=== PATIENT | female | born 1975 | race Caucasian/White ===

== ENCOUNTER 2017-01-01 19:38 | Emergency (ER) | payer MEDICAID ==
[2017-01-01 19:48] VITALS: RESP 18
[2017-01-01] MEDS ORDERED: Sodium Chloride 0.9% 1,000 ML IV ONE (21:48)
[2017-01-01 22:41] LABS: BASO # 0.1 K/uL (0.0-0.2); EOS # 0.1 K/uL (0.0-0.7); EOS % 1.5 % (0.0-4.0); HEMATOCRIT 48.5 % (34.0-47.0); LYMPH % 21.9 % (20.0-40.0); MEAN CELL VOLUME 95.7 fL (81.0-99.0); MEAN CORPUSCULAR HEMOGLOBIN 32.2 pg (27.0-31.0); MEAN CORPUSCULAR HGB CONC 33.6 g/dL (33.0-37.0); MEAN PLATELET VOLUME 8.5 fL (7.2-11.7); MONO # 0.7 K/uL (0.0-0.8); MONO % 7.8 % (0.0-10.0); RED CELL DISTRIBUTION WIDTH 15.2 % (11.5-14.5)
[2017-01-01] MEDS ORDERED: Sodium Chloride 0.9% 1,000 ML ONE (22:41)
[2017-01-01] MEDS ORDERED: Sodium Chloride 0.9% 50 ML IV ONE (22:42)
[2017-01-01 22:48] LABS: CHLORIDE 105 mmol/L (98-107); URINE BACTERIA RARE (<OCC); URINE BILIRUBIN NEGATIVE (NEGATIVE); URINE BLOOD NEGATIVE (NEGATIVE); URINE COLOR Yellow (YELLOW); URINE GLUCOSE (UA) NORMAL (Normal); URINE KETONE NEGATIVE (NEGATIVE); URINE LEUKOCYTE ESTERASE NEG Leu/uL (Negative); URINE PROTEIN NEGATIVE (NEGATIVE); URINE UROBILINOGEN NORMAL mg/dL (0.2-1.0); WBC URINE 1 /hpf (0-5)
[2017-01-01 22:49] LABS: POTASSIUM 3.4 mmol/L (3.6-5.2); SODIUM 138 mmol/L (132-148)
[2017-01-01 22:51] LABS: BILIRUBIN,TOTAL 0.6 mg/dL (0.2-1.3); GFR AFRICAN-AMERICAN > 60
[2017-01-01 22:52] LABS: ALB/GLOB RATIO 1.1 (1.0-2.1); ALKALINE PHOSPHATASE 119 U/L (38-126); ALT/SGPT 23 U/L (9-52); AST/SGOT 17 U/L (14-36); BLOOD UREA NITROGEN 3 mg/dL (7-17); CALCIUM 8.8 mg/dl (8.6-10.4); CARBON DIOXIDE 21 mmol/L (22-30); GLUCOSE,RANDOM 101 mg/dL (65-105); TOTAL PROTEIN 7.2 g/dL (6.3-8.3)
[2017-01-01 23:11] LABS: T4 2.94 ug/dL (5.5-11.0)
[2017-01-01] MEDS ORDERED: Levothyroxine 200 MCG TAB PO STA (23:38)
--- NOTE | 2017-01-01 23:41 | C.PDOC ---
Time Seen by Provider: 01/01/17 21:27 Chief Complaint (Nursing): Abdominal Pain History Per: Patient Onset/Duration Of Symptoms: Days (few) Current Symptoms Are (Timing): Still Present Location Of Pain/Discomfort: Epigastric Radiation Of Pain To:: None Quality Of Discomfort: Unable To Describe, "Pain" Associated Symptoms: Constipation Alleviating Factors: None Additional History Per: Prior Records Past Medical History Reviewed: Historical Data, Nursing Documentation, Vital Signs Vital Signs: Last Vital Signs Temp 98.4 F 01/01/17 19:44 Pulse 101 H 01/01/17 19:44 Resp 18 01/01/17 19:44 BP 112/76 01/01/17 19:44 Pulse Ox 100 01/01/17 23:42 - Medical History PMH: Anxiety, Arthritis, Asthma, Back Problems, COPD, Depression, Diabetes, Fibromyalgia, Graves' Disease, HTN, Hypothyroidism, Post Traumatic Stress Disorder, Schizophrenia Surgical History: Tonsillectomy Family History: States: Unknown Family Hx - Social History Hx Tobacco Use: Yes Hx Alcohol Use: Yes Hx Substance Use: No - Immunization History Hx Tetanus Toxoid Vaccination: Yes Hx Influenza Vaccination: Yes Hx Pneumococcal Vaccination: Yes Review Of Systems Except As Marked, All Systems Reviewed And Found Negative. Constitutional: Negative for: Fever, Weakness Cardiovascular: Negative for: Chest Pain Respiratory: Negative for: Shortness of Breath Gastrointestinal: Positive for: Abdominal Pain, Constipation. Negative for: Vomiting, Diarrhea, Melena, Hematochezia, Hematemesis Genitourinary: Negative for: Dysuria Musculoskeletal: Negative for: Neck Pain, Back Pain Skin: Negative for: Rash Neurological: Negative for: Weakness, Numbness, Seizures, Altered Mental Status Physical Exam - Physical Exam Appears: Non-toxic, No Acute Distress Skin: Normal Color, Warm, Dry, No Rash Head: Atraumatic, Normacephalic Eye(s): bilateral: PERRL, EOMI Neck: Normal ROM, Supple Cardiovascular: Rhythm Regular Respiratory: Normal Breath Sounds, No Accessory Muscle Use Gastrointestinal/Abdominal: Soft, Tenderness (mild epigastric), No Guarding, No Rebound Back: No CVA Tenderness Extremity: Normal ROM Neurological/Psych: Oriented x3, Normal Motor, Normal Sensation ED Course And Treatment - Laboratory Results Result Diagrams: 01/01/17 22:38 01/01/17 22:38 Lab Interpretation: Abnormal Interpretation Of Abnormal: Hypothyroidism Urine POC: Negative O2 Sat by Pulse Oximetry: 100 Pulse Ox Interpretation: Normal Progress Note: Pt states that she ran out of her Levothyroxine 200mcg daily about a month ago. Progress - Interventions Interventions:: Observation, Intravenous fluid - Medications Administered Intravenous: Antiemetic, H-2 don - Data Reviewed Data Reviewed: Lab, Old records - Patient Status Patient status: Mostly improved - Continuity of Care Discussed patient case with:: Patient, ED Nurse - Patient Plan Patient Plan: Discharge, F/U with PCP Disposition Counseled Patient/Family Regarding: Studies Performed, Diagnosis, Need For Followup, Rx Given, Smoking Cessation - Disposition Referrals: Tylor Woo MD [Non-Staff] - Disposition: HOME/ ROUTINE Disposition Time: 23:44 Condition: IMPROVED Additional Instructions: Follow up with your doctor for further evaluation and treatment. Return to the ER if you develop fever, vomiting, worsening of symptoms or if you have any other concerns. Prescriptions: Docusate [Colace] 100 mg PO BID PRN #60 cap PRN Reason: Constipation Levothyroxine [Synthroid] 200 mcg PO DAILY #30 tab Instructions: Hypothyroidism (ED), Constipation (ED) - Clinical Impression Clinical Impression: Abdominal pain, Hypothyroidism, Constipation
[2017-01-01] MEDS ORDERED: Potassium Chloride 20 mEq ER Tab PO STA (23:42)
[2017-01-01 23:58] VITALS: BP 134/87; PULSE 88; TEMP 97.9; O2SAT 98
[2017-01-02] MEDS ORDERED: Potassium Chloride 20 mEq ER Tab PO ONE (00:26)
== END 2017-01-02 00:32 | disposition home or self-care (01) ==
LOC: C.ER 19:38
DX: K59.00 Constipation, unspecified (principal); R10.13 Epigastric pain; E03.9 Hypothyroidism, unspecified; E87.6 Hypokalemia
CPT/HCPCS: 80053; 81001; 83690; 84436; 84443; 84480; 84703; 85025; 96361; 96374; 96375; 99285; J2765; J7040

== ENCOUNTER 2017-01-03 19:51 | Inpatient (IN) | payer MEDICAID ==
[2017-01-03 20:40] LABS: BASO # 0.1 K/uL (0.0-0.2); BASO % 0.8 % (0.0-2.0); EOS # 0.2 K/uL (0.0-0.7); EOS % 1.5 % (0.0-4.0); HEMATOCRIT 48.7 % (34.0-47.0); MEAN CELL VOLUME 96.5 fL (81.0-99.0); MEAN CORPUSCULAR HEMOGLOBIN 32.4 pg (27.0-31.0); MEAN CORPUSCULAR HGB CONC 33.6 g/dL (33.0-37.0); MEAN PLATELET VOLUME 8.9 fL (7.2-11.7); MONO # 0.8 K/uL (0.0-0.8); MONO % 7.7 % (0.0-10.0); RED CELL DISTRIBUTION WIDTH 15.6 % (11.5-14.5); WHITE BLOOD COUNT 10.3 K/uL (4.8-10.8)
--- NOTE | 2017-01-03 20:49 | C.PDOC ---
History Of Present Illness A 41 year old female presents to the ED with suicidal ideation. At first, patient reported that she took multiple tablets of Trazadone, but later recanted it. Patient is unsure which medication and how much of it, she consumed. Patient states that she wants to kill herself. Patient denies any chest pain, shortness of breath, fever, nausea, vomiting, diarrhea, or any other complaints. Time Seen by Provider: 01/03/17 20:19 Chief Complaint (Nursing): Medical Clearance History Per: Patient History/Exam Limitations: no limitations Onset/Duration Of Symptoms: Hrs Current Symptoms Are (Timing): Still Present Severity: Mild Recent travel outside of the [place]: No Past Medical History Reviewed: Historical Data, Nursing Documentation, Vital Signs Vital Signs: Last Vital Signs Temp 98.4 F 01/04/17 00:01 Pulse 88 01/04/17 00:01 Resp 20 01/04/17 00:01 BP 126/80 01/04/17 00:01 Pulse Ox 97 01/04/17 00:01 - Medical History PMH: Anxiety, Arthritis, Asthma, Back Problems, COPD, Depression, Diabetes, Fibromyalgia, Graves' Disease, HTN, Hyperthyroidism, Hypothyroidism, Post Traumatic Stress Disorder, Schizophrenia Denies: HIV, Seizures, Sexually Transmitted Disease Surgical History: Tonsillectomy Family History: States: Unknown Family Hx - Social History Hx Tobacco Use: Yes Hx Alcohol Use: Yes Hx Substance Use: No - Immunization History Hx Tetanus Toxoid Vaccination: Yes Hx Influenza Vaccination: Yes Hx Pneumococcal Vaccination: Yes Review Of Systems Except As Marked, All Systems Reviewed And Found Negative. Constitutional: Negative for: Fever Cardiovascular: Negative for: Chest Pain Respiratory: Negative for: Shortness of Breath Gastrointestinal: Negative for: Nausea, Vomiting, Diarrhea Psych: Positive for: Suicidal ideation Physical Exam - Physical Exam Appears: Well, Non-toxic, No Acute Distress, Other (Pleasant. Conversing. Obese. ) Skin: Normal Color, Warm, Dry Head: Atraumatic, Normacephalic Eye(s): bilateral: Normal Inspection Neck: Normal ROM, Supple Cardiovascular: Rhythm Regular Respiratory: Normal Breath Sounds, No Rales, No Rhonchi, No Wheezing Gastrointestinal/Abdominal: Soft, No Tenderness, No Guarding, No Rebound Extremity: Normal ROM, No Tenderness Neurological/Psych: Oriented x3, Normal Speech, Normal Cognition ED Course And Treatment - Laboratory Results Result Diagrams: 01/03/17 20:31 01/03/17 20:30 ECG: Interpreted By Me ECG Rhythm: Sinus Tachycardia ECG Interpretation: Abnormal Rate From EC (otherwise nl) O2 Sat by Pulse Oximetry: 100 (repeat EKG after approx 4 hours, NSR 96, no prolonged QT. wnl) Medical Decision Making Medical Decision Making: Plan: -- Labs -- One on one at bedside 0030: medically cleared for psych eval/inpt repeat EKG after 4 hours remains wnl. (per Poison Contol recommendations) Disposition - Disposition Disposition Time: 01:00 Condition: GOOD - Clinical Impression Clinical Impression: Medical assessment, Schizophrenia - Scribe Statement The provider has reviewed the documentation as recorded by the Scribe Alfonzo Contreras All medical record entries made by the Scribe were at my direction and personally dictated by me. I have reviewed the chart and agree that the record accurately reflects my personal performance of the history, physical exam, medical decision making, and the department course for this patient. I have also personally directed, reviewed, and agree with the discharge instructions and disposition. Physician Patient Turnover Patient Signed Over To: Kishor Harmon Handoff Comments: dispo per Crisis Recommendations.
[2017-01-03 20:52] LABS: CHLORIDE 101 mmol/L (98-107)
[2017-01-03 20:53] LABS: POTASSIUM 3.1 mmol/L (3.6-5.2); SODIUM 137 mmol/L (132-148)
[2017-01-03 20:55] LABS: ALB/GLOB RATIO 1.2 (1.0-2.1); ALKALINE PHOSPHATASE 120 U/L (38-126); ALT/SGPT 18 U/L (9-52); AST/SGOT 17 U/L (14-36); BILIRUBIN,TOTAL 0.3 mg/dL (0.2-1.3); BLOOD UREA NITROGEN 4 mg/dL (7-17); CALCIUM 8.4 mg/dl (8.6-10.4); CARBON DIOXIDE 20 mmol/L (22-30); GFR AFRICAN-AMERICAN > 60; GLUCOSE,RANDOM 109 mg/dL (65-105); TOTAL PROTEIN 7.3 g/dL (6.3-8.3)
[2017-01-03 20:56] LABS: ALCOHOL SERUM < 10 mg/dl (0-10)
[2017-01-03 21:31] LABS: URINE BACTERIA RARE (<OCC); URINE BILIRUBIN NEGATIVE (NEGATIVE); URINE BLOOD NEGATIVE (NEGATIVE); URINE COLOR Yellow (YELLOW); URINE GLUCOSE (UA) NORMAL (Normal); URINE KETONE NEGATIVE (NEGATIVE); URINE LEUKOCYTE ESTERASE NEG Leu/uL (Negative); URINE PROTEIN NEGATIVE (NEGATIVE); URINE UROBILINOGEN NORMAL mg/dL (0.2-1.0); WBC URINE < 1 /hpf (0-5)
[2017-01-04] MEDS ORDERED: Naphazoline-Pheniramine Ophth Soln OU PRN (10:00)
[2017-01-04] MEDS: Levothyroxine 200 MCG TAB PO SCH (10:58)
[2017-01-04] MEDS: Pantoprazole 40 mg EC Tab PO SCH (10:58)
[2017-01-04 11:03] LABS: IRON 63 ug/dL (37-170)
[2017-01-04 12:11] LABS: FOLATE 3.9 ng/mL
--- NOTE | 2017-01-04 12:51 | CP.PCM.CON ---
History of Present Illness - History of Present Illness History of Present Illness: Chest pain and prolong Q-T interval. No new symptoms since admission. Past Patient History - Infectious Disease Hx of Infectious Diseases: None - Past Medical History & Family History Past Medical History?: Yes - Past Social History Smoking Status: Heavy Smoker > 10 Cigarettes Daily - CARDIAC Hx Cardiac Disorders: No Hx Hypertension: Yes - PULMONARY Hx Asthma: Yes Hx Tuberculosis: No - NEUROLOGICAL HX Cerebrovascular Accident: No Hx Seizures: No Hx Vertigo: Yes - HEENT Other/Comment: Hyperthyroidism - RENAL Hx Chronic Kidney Disease: No - ENDOCRINE/METABOLIC Hx Hyperthyroidism: Yes Hx Hypothyroidism: Yes - HEMATOLOGICAL/ONCOLOGICAL Hx Blood Disorders: No Hx Cancer: No Hx Human Immunodeficiency Virus (HIV): No - INTEGUMENTARY Hx Dermatological Problems: No - MUSCULOSKELETAL/RHEUMATOLOGICAL Hx Arthritis: Yes - GASTROINTESTINAL Hx Gastrointestinal Disorders: Yes Hx Gastroesophageal Reflux: Yes - GENITOURINARY/GYNECOLOGICAL Hx Genitourinary Disorders: No Hx Sexually Transmitted Disorders: No - PSYCHIATRIC Hx Anxiety: Yes Hx Depression: Yes Hx Post Traumatic Stress Disorder: Yes Hx Schizophrenia: Yes Hx Substance Use: No - SURGICAL HISTORY Hx Tonsillectomy: Yes Other/Comment: Right Eye surgery, Right Neck Surgery - ANESTHESIA Hx Anesthesia: Yes Hx Anesthesia Reactions: No Hx Malignant Hyperthermia: No Has any member of the family had a problem w/ anesthesia?: No Meds Allergies/Adverse Reactions: Allergies Allergy/AdvReac Type Severity Reaction Status Date / Time cefazolin sodium [From Anc] Allergy RASH Verified 01/03/17 20:12 Penicillins Allergy RASH Verified 01/03/17 20:12 - Medications Medications: Current Medications Docusate Sodium (Colace) 100 mg PO BID PRN PRN Reason: Constipation Last Admin: 01/04/17 10:58 Dose: 100 mg Gabapentin (Neurontin) 800 mg PO TID [facility] Last Admin: 01/04/17 10:58 Dose: 800 mg Home Med (Ketotifen Fumarate [Allergy Eye Drops]) 1 drop OU BID [facility] Levothyroxine Sodium (Synthroid) 200 mcg PO 0630 [facility] Last Admin: 01/04/17 10:58 Dose: 200 mcg Pantoprazole Sodium (Protonix Ec Tab) 40 mg PO DAILY [facility] Last Admin: 01/04/17 10:58 Dose: 40 mg Trazodone HCl (Desyrel) 150 mg PO HS [facility] Physical Exam - Head Exam Head Exam: NORMOCEPHALIC - Neck Exam Neck exam: Positive for: Normal Inspection - Respiratory Exam Respiratory Exam: NORMAL BREATHING PATTERN - Cardiovascular Exam Cardiovascular Exam: REGULAR RHYTHM - Neurological Exam Neurological exam: Oriented x3 Results - Vital Signs Recent Vital Signs: Last Vital Signs Temp 97.8 F 01/04/17 12:12 Pulse 78 01/04/17 12:12 Resp 20 01/04/17 12:12 BP 92/51 L 01/04/17 12:12 Pulse Ox 98 01/04/17 12:12 - Labs Result Diagrams: 01/03/17 20:31 01/03/17 20:30 Labs: Laboratory Results - last 24 hr 01/04/17 10:24 Hemoglobin A1c 5.5 Iron 63 TIBC 279 % Saturation 23 Total Creatine Kinase 105 CK-MB (Mass) 0.71 Troponin I, Quant < 0.0120 Triglycerides 74 Cholesterol 159 LDL Cholesterol Direct 85 HDL Cholesterol 54 Vitamin B12 391 Folate 3.9 Assessment & Plan (1) Long QT interval Assessment and Plan: Prolong Q-T interval may be secondary to her Medication and electrolyte abnormalities. Doses of her medicine needs to be adjusted of OK with psychiatry. Electrolyte abnormalities also needs to be corrected. Orders given to supplement K and Mg. Status: Acute (2) Chest pain Assessment and Plan: Atypical and work up is negative so far, continue monitor. Status: Acute
[2017-01-04] MEDS ORDERED: Potassium Chloride 20 mEq 100 ML IVPB ONE (12:54)
[2017-01-04] MEDS ORDERED: Potassium Chloride 20 mEq ER Tab PO ONE ×2 (13:06→17:06)
--- NOTE | 2017-01-04 13:24 | PCM.PSYCH ---
Initial Psychiatric Evaluation - Initial Psychiatric Evaluation Type of Admission: Voluntary Legal Status: Capacity Chief Complaint (in patient's own words): "I'm tired" History of Present Illness and Precipitating Events: The patient is seen, chart reviewed and case discussed. Consultation was requested because of the patient's overdose. This is a 15-year-old manic female with 3 children aged 17, 19 and 21. She is on several ability and on wheelchair. The patient admits to taking more trazodone than she was supposed to yesterday and she claims that it was "not a real suicide attempt" as she had done a real one long ago, in the past. She says that she was feeling depressed and very anxious lately and she mixed her meds but did not care much, but at same time she states that she knew she would not and she asked for help. She did not write any suicide note and she is very happy to be alive and she states that "I have 3 beautiful children." She denies any suicidal ideation or plan at this point and she is future oriented, she wants to continue with outpatient psych therapy and adjust her medications. Insurance Defense Attorney spoke to her with her permission and he, too, reported that patient was not suicidal, but anxious lately. Patient also admits to hearing voices but no comments. Voices yell at her at times. She reports some depressive symptoms, including low self-esteem, but denies feeling paranoid or manic. She was on trazodone and Risperdal which play writer confirmed with her pharmacy, [facility] [address], as well as Trileptal, Xanax and she use gabapentin last year. She was also on Wellbutrin XL 300 mg She denies drug and alcohol abuse but smokes 1 ppd cig. Past psych history: Several admissions. She use to go to [facility] but she stopped because of her physical disability and missing appointments. She is getting her medications from her neurologist on [facility]. One overdose many years ago and her last psych admission was in 2013. Family psych history: Father had schizophrenia Medical history: Disc hernia, wheelchair bound, Ami's thyroiditis. Current Medications: Active Medications Generic Name Dose Route Start Last Admin Trade Name Freq PRN Reason Stop Dose Admin Docusate Sodium 100 mg 01/04/17 08:54 01/04/17 10:58 Colace PO 100 mg BID PRN Administration Constipation Gabapentin 800 mg 01/04/17 10:00 01/04/17 10:58 Neurontin PO 800 mg TID LIZZIE Administration Potassium Chloride 100 mls @ 50 mls/hr 01/04/17 12:54 Potassium Chloride 20 Meq/100 Ml IVPB 01/04/17 14:53 ONCE ONE Levothyroxine Sodium 200 mcg 01/04/17 10:00 01/04/17 10:58 Synthroid PO 200 mcg 0630 LIZZIE Administration Naphazoline HCl/Pheniramine Maleate 0 ml 01/04/17 10:00 Naphcon-A Opht OU BID PRN EYE ITCHING/REDNESS Pantoprazole Sodium 40 mg 01/04/17 10:00 01/04/17 10:58 Protonix Ec Tab PO 40 mg DAILY LIZZIE Administration Potassium Chloride 40 meq 01/04/17 17:06 K-Dur 20 Meq Er Tab PO 01/04/17 17:07 ONCE ONE Trazodone HCl 150 mg 01/04/17 22:00 Desyrel PO HS [facility] Past Psychiatric History - Past Psychiatric History Previous Treatment History: Inpatient Pertinent Medical Hx (Current Medical&Sleep Prob, Allergies): Allergies Allergy/AdvReac Type Severity Reaction Status Date / Time cefazolin sodium [From [facility]] Allergy RASH Verified 01/03/17 20:12 Penicillins Allergy RASH Verified 01/03/17 20:12 Benzonatate [Tessalon Perle] 100 mg PO BID 01/01/17 Cyclobenzaprine 5 mg PO BID 01/01/17 Docusate [Colace] 100 mg PO BID PRN #60 cap 01/01/17 Levothyroxine [Synthroid] 200 mcg PO DAILY #30 tab 01/01/17 Pantoprazole 40 mg PO DAILY 01/01/17 Gabapentin [Neurontin] 1 tab PO TID 01/03/17 Ketotifen Fumarate [Allergy Eye Drops] 1 drop OU BID 01/03/17 Zolpidem [Ambien] 1 tab PO HS 01/03/17 traZODone 150 mg PO HS 01/03/17 Review of Systems - Neurological Neurological: Weakness - Psychiatric Psychiatric: Abnormal Sleep Pattern, Anhedonia, Anxiety, Depression, Difficulty Concentrating, Hallucinations, Irritability. absent: Homicidal Ideation, Hopelessness, Paranoia, Suicidal Ideation Mental Status Examination - Personal Presentation Personal Presentation: Looks older than stated age - Affect Affect: Constricted - Motor Activity Motor Activity: Calm - Reliability in Providing Information Reliability in Providing Information: Good - Speech Speech: Organized - Mood Mood: Depressed, Anxious - Formal Thought Process Formal Thought Process: No Impairment - Obsessions/Compulsions Obsessions: No Compulsions: No - Cognitive Functions Orientation: Person, Place, Situation, Time Sensorium: Alert Attention/Concentration: Attentive Estimate of Intelligence: Average Judgement: Imparied, as evidence by: Poor judgement (od), Intact, as evidence by : Insight regarding need for hospitalization Memory: Recent intact, as evidence by: Ability to recall events of the day, Remote intact, as evidenced by: Abilit to recall sig. life events - Risk Risk: Diminished functioning - Strength & Assets Inventory Strength & Assets Inventory: Cooperative DSM 5 DX - DSM 5 DSM 5 Diagnosis: Major depressive d/o - recurrent, severe, with psychotic features Generalized anxiety d/o r/o psychotic d/o - unspecified - Recommended/Plan of Treatment Treatment Recommendations and Plan of Treatment: Depression: -Wellbutrin XL 150 for now -Support and CBT -Close observation Psychosis: -Abilify 5 mg for now -DC risperdal. Qt is prolonged -Support and CBT Anxiety: -Klonopin 0.5 3 times a day for now which will be discussed and stopped Odell- supportive therapy, relaxation skills and CBT Will not used trazodone as she OD'ed on it. And her QTc is prolonged Gabapentin is decreased from 800 to 300 because she had not been taken it for months Nicotine: -Patch -Mi for abstinence Transfer to psychiatry when medically stabilized. Please call on-call psychiatrist first. 34 minutes
[2017-01-04] MEDS: Potassium Chloride 20 mEq ER Tab PO SCH (18:01)
[2017-01-04 19:46] LABS: CHLORIDE 105 mmol/L (98-107); POTASSIUM 4.2 mmol/L (3.6-5.2); SODIUM 138 mmol/L (132-148)
[2017-01-04 19:49] LABS: BLOOD UREA NITROGEN 5 mg/dL (7-17); CARBON DIOXIDE 21 mmol/L (22-30); GFR AFRICAN-AMERICAN > 60; GLUCOSE,RANDOM 99 mg/dL (65-105)
[2017-01-04 19:50] LABS: CALCIUM 7.7 mg/dl (8.6-10.4); MAGNESIUM 2.5 mg/dL (1.6-2.3)
[2017-01-05] MEDS: Levothyroxine 200 MCG TAB PO SCH (05:56)
--- NOTE | 2017-01-05 06:29 | CARD ---
APPROVED REPORT EKG Measurement Heart [id number] <Conclusion> Sinus tachycardia Possible Left atrial enlargement Possible Inferior infarct, age undetermined Abnormal ECG
[2017-01-05 08:33] LABS: HEMATOCRIT 45.5 % (34.0-47.0); MEAN CORPUSCULAR HEMOGLOBIN 32.1 pg (27.0-31.0); MEAN CORPUSCULAR HGB CONC 32.7 g/dL (33.0-37.0); MEAN PLATELET VOLUME 8.8 fL (7.2-11.7); RED CELL DISTRIBUTION WIDTH 16.2 % (11.5-14.5); WHITE BLOOD COUNT 8.4 K/uL (4.8-10.8)
--- NOTE | 2017-01-05 08:37 | HP ---
CHIEF COMPLAINT: Chest pain, hearing voices. 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 As per the patient reports that she took multiple tablets of trazodone, but later on she felt that the patient is unsure which medication and how much of it she consumed. The patient says that she wants to kill herself. The patient denies any chest pain, shortness of breath. No fever, nausea, vomiting, diarrhea or any other complications. Complaining about chest pain. PAST MEDICAL HISTORY: Anxiety, arthritis, asthma, COPD, depression, diabetes mellitus, fibromyalgia, Graves' disease, hypertension, hyperthyroidism, posttraumatic stress disorder, schizophrenia. PAST SURGICAL HISTORY: Tonsillectomy. FAMILY HISTORY: Father and mother noncontributory. HABITS: Smoking yes, alcohol yes, no substance abuse. REVIEW OF SYSTEMS: The patient seen and examined in the ER. At that moment, she was not complaining about chest pain. No fever, no shortness of breath. No nausea, vomiting, or diarrhea. Positive suicidal ideation. Actually, the patient should be admitted in the psych, but I do not know why they admitted to medical floor. PHYSICAL EXAMINATION: VITAL SIGNS: Temperature 99, pulse 75, blood pressure 105/75, respiratory rate 20. HEENT: Head normocephalic, atraumatic. Eyes: PERRLA. Extraocular muscles intact. Conjunctivae pink. Eyelids unremarkable. Nose patent. Mucous membranes moist. NECK: Supple. No carotid bruit, JVD or thyromegaly. CHEST: Bilaterally symmetrical. HEART: S1, S2 positive. LUNGS: Clear to auscultation. ABDOMEN: Soft. Bowel sounds positive. No organomegaly. EXTREMITIES: No edema, no cyanosis. NEUROLOGIC: Awake, alert, moving all 4 extremities. No focal deficit. LABORATORY DATA: White blood cells 10.3, hemoglobin 15.3, hematocrit 48.7, platelets 238. Sodium 138, potassium 4.2, on admission was 3.1 and replaced. BUN 5, creatinine 0.9, calcium 7.7, magnesium 2.5. ASSESSMENT AND PLAN: The patient is a 41-year-old lady patient with polycythemia, hypokalemia, replaced; hypocalcemia, hypermagnesemia, came to [facility] Emergency Room, history of schizophrenia, history of anxiety, arthritis, asthma, back problem, chronic obstructive pulmonary disease, depression, diabetes mellitus as per the patient, fibromyalgia, Graves' disease , hypertension, hyperthyroidism, posttraumatic stress disorder, tonsillectomy. We admitted the patient. Psychiatric consult called. The patient has severe disability and is wheelchair bound. History of major depression, generalized anxiety, psychosis. Started on Wellbutrin, close observation, Abilify is prolonged as per the psychiatric. Supportive, give Klonopin for anxiety and according to psychiatrist, do not use trazodone and her QT interval is prolonged. Gabapentin decreased from 800 to 300 because she had not taken it for a month. Nicotine patch given. Education done for abstain. According to psychestrist we can transfer the patient to psychiatric as soon as stabilized if cleared by the environmental solutions engineer. According to Dr. Lazo, prolonged QT interval may be secondary to other medication and electrolyte abnormalities and the doses of her medications need to be adjusted and that is done by the psychiatrist actually. Electrolyte abnormality needs to be corrected and is corrected. Potassium and magnesium supplemented. According to Dr. Lazo, chest pain is atypical and workup is negative so far. Continue Abilify, docusate for constipation. Potassium was given for replacement. Klonopin continue that and Neurontin was decreased from 800-300 by the psychiatrist. Nicotine patch for smoking, pantoprazole for gastrointestinal support. Levothyroxine we will discontinue the way she is taking. We will follow up. Velma Cho MD cc: [id number] TT: 01/05/2017 08:36:45 tn MTDD
[2017-01-05 08:44] LABS: CHLORIDE 105 mmol/L (98-107); POTASSIUM 3.9 mmol/L (3.6-5.2); SODIUM 137 mmol/L (132-148)
[2017-01-05 08:46] LABS: CARBON DIOXIDE 22 mmol/L (22-30); GFR AFRICAN-AMERICAN > 60
[2017-01-05 08:47] LABS: BLOOD UREA NITROGEN 8 mg/dL (7-17); GLUCOSE,RANDOM 83 mg/dL (65-105)
[2017-01-05] MEDS: buPROPion 150 mg/24 Hours XL Tab PO SCH (10:00)
[2017-01-05] MEDS: Pantoprazole 40 mg EC Tab PO SCH (10:21)
[2017-01-05] MEDS: Potassium Chloride 20 mEq ER Tab PO SCH (10:22)
[2017-01-05] MEDS ORDERED: Potassium Chloride 20 mEq ER Tab PO ONE ×2 (13:02→17:02)
--- NOTE | 2017-01-05 21:20 | PN ---
DATE: 01/05/2017 SUBJECTIVE: The patient was seen and examined on the bedside. Looks comfortable. No nausea, vomiting, or diarrhea. She is on 1:1. No fever, no chills. Looks comfortable, had good sleep. Appetite is good. PHYSICAL EXAMINATION: VITAL SIGNS: Temperature 98.1, pulse 78, blood pressure 120/65, respiratory rate 20. HEENT: Head normocephalic, atraumatic. Eyes: PERRLA. Extraocular muscles intact. Conjunctivae are clear. Eyelids unremarkable. Nose patent. NECK: Supple. No carotid bruit, JVD or thyromegaly. CHEST: Bilaterally symmetrical. HEART: S1, S2 positive. LUNGS: Clear to auscultation. ABDOMEN: Soft. Bowel sounds present. No organomegaly. EXTREMITIES: No edema, no cyanosis. NEUROLOGIC: The patient is awake, alert, moving all 4 extremities. No focal deficits. MEDICATIONS: Abilify, Colace, heparin, potassium, Klonopin, Neurontin, Nicoderm , Protonix, Synthroid, Wellbutrin. LABORATORY DATA: White blood cell 8.4, hemoglobin 14.9, hematocrit 45.5, platelets 218. Sodium 137, potassium 3.5, BUN 8, creatinine 0.9, calcium 8.0. ASSESSMENT AND PLAN: The patient is a 41-year-old lady with hypocalcemia, hypermagnesemia, came in [facility] for psych but on examination, her QT interval was prolonged, admitted on the medical floor. Called cardiology consult. Dr. Lazo cleared the patient, and now waiting for the bed in the psych department on the medical floor. The patient is on 1:1. The patient has history of anxiety, arthritis, asthma, chronic obstructive pulmonary disease, depression, diabetes mellitus, fibromyalgia, Grave's disease as per patient, hypertension, posttraumatic stress disorder, schizophrenia, history of tonsillectomy. We will replace calcium. Gastrointestinal and deep venous thrombosis prophylaxis. Repeat labs. We will follow up. Velma Cho MD cc: [id number] TT: 01/05/2017 21:19:40 Confirmation # [id number] Dictation # [id number] patricia BAKER
[2017-01-06] MEDS: Levothyroxine 200 MCG TAB PO SCH (05:47)
[2017-01-06] MEDS ORDERED: Calcium-Vit D 250 mg-125 Units Tab UD PO SCH (10:00)
[2017-01-06] MEDS: Pantoprazole 40 mg EC Tab PO SCH (10:22)
[2017-01-06] MEDS: Potassium Chloride 20 mEq ER Tab PO SCH (10:22)
[2017-01-06] MEDS: buPROPion 150 mg/24 Hours XL Tab PO SCH (10:25)
--- NOTE | 2017-01-06 14:24 | PCM.PYCHPN ---
Psychiatric Progress Note - Psychiatric Progress Note Patient seen today, length of contact: 15 minutes Patient Chief Complaint: I'm feeling much better Problems Identified/Issues Discussed: Patient seen. Chart reviewed. Case discussed with staff. Issues related to illness and treatment were discussed with the patient. Patient reported feeling much better. Reported compliant with treatment with no adverse affects. Patient was on 1:1 precaution because of suicidal ideations. Patient denied any suicidal ideations or plan. Patient reported she is feeling better now. Discussed with the patient about the possibility of transferring her to psychiatric unit, patient refused. At the time of evaluation, patient was awake alert oriented 3, had no delusions, no auditory or visual hallucinations, no suicidal ideations or homicidal ideations. Will discontinue1:1 suicidal precautions. Diagnostic Results: Reviewed DSM 5 Symptoms Update: Improving with treatment Medication Change: No Medical Record Reviewed: Yes Mental Status Examination - Cognitive Function Orientation: Person, Place, Situation, Time Memory: Intact Attention: WNL Concentration: WNL Association: WNL Fund of Knowledge: WN Decription of patient's judgement and insights: Fair - Mood Mood: Depressed (Less than before) - Affect Affect: Depressed - Speech Speech: Appropriate - Formal Thought Process Formal Thought Process: No Impairment Psychotic Thoughts and Behaviors: None - Suicidal Ideation Suicidal Ideation: No - Homicidal Ideation Homicidal Ideation: No Goal/Treatment Plan - Goal/Treatment Plan Need for Continued Stay: Remain at risks for inpatient hospitalization, Discharge may exacerbated symptoms, Severe functional impairment Progress Toward Problem(s) and Goals/Treatment Plan: Patient education Supportive therapy Will reevaluate again Continue treatment as per medicine - Smoking Cessation Smoking Cessation Initiated: No
--- NOTE | 2017-01-06 21:00 | PN ---
DATE: 01/06/2017 The patient is seen and examined at the bedside, looks comfortable. No nausea, vomiting, or diarrhea. No hematuria or hematochezia. No swelling of the legs. No chest pain, no palpitations, no headache, no dizziness, no fever and no chills. PHYSICAL EXAMINATION: VITAL SIGNS: Temperature 97.8, pulse 80, blood pressure 110/74, respiratory rate 20. HEENT: Head normocephalic, atraumatic. Eyes: PERRLA. Extraocular muscles intact. Conjunctivae pink. Eyelids unremarkable. Nose patent. Mucous membranes moist. NECK: Supple. No carotid bruit, JVD or thyromegaly. CHEST: Bilaterally symmetrical. HEART: S1, S2 positive. LUNGS: Clear to auscultation. ABDOMEN: Soft. Bowel sounds positive. No organomegaly. EXTREMITIES: No edema, no cyanosis. NEUROLOGIC: The patient is awake, alert, moving all 4 extremities. No focal deficits. MEDICATIONS: Abilify, Colace, heparin, potassium, Klonopin, eyedrops, Neurontin, calcium, Protonix, levothyroxine and Wellbutrin. LABORATORY DATA: White blood cells noted , hemoglobin 14.9, hematocrit 45.5, and platelets 218. Sodium 137, potassium 3.9, BUN 8, creatinine 0.9, calcium 8 and magnesium 2.5. ASSESSMENT AND PLAN: The patient with dropping of hemoglobin with hypocalcemia , hypermagnesemia, hypothyroidism, seen by Dr. Gael Lopez, Psychiatrist. The patient came in with suicidal ideation, was on 1:[address] Lopez, the patient is denying any suicidal ideation or plan. The patient reported she is feeling better now. Discussion done with the patient about the possibility of transferring her to the psychiatric unit. The patient refused. At the time of evaluation the patient was oriented x 3 as per the psychiatrist, no delusions , no hallucinations, no suicidal ideation or homicidal ideation, improving with treatment. The patient was seen by the cardiologists also. The patient has a history of depression. According to Dr. Lazo the patient has a long QT interval secondary to medication and electrolyte abnormalities. Dosages of her medications needed to be adjusted by psychiatry. Electrolyte abnormalities has corrected. Chest pain is atypical as per the shipping services sales representative. If shipping services sales representative and neurologist will cleare . Will discharge the patient home tomorrow. Follow up with primary care physician . Velma Cho MD cc: [id number] TT: 01/06/2017 20:58:53 Confirmation # [id number] Dictation # [id number] johnny BAKER
[2017-01-07] MEDS ORDERED: Levothyroxine 112 MCG TAB PO SCH (06:30)
[2017-01-07] MEDS ORDERED: Levothyroxine 100 MCG TAB PO SCH (06:30)
[2017-01-07 08:49] VITALS: BP 113/74; PULSE 79; RESP 20; TEMP 98.6; O2SAT 95
[2017-01-07] MEDS: Pantoprazole 40 mg EC Tab PO SCH (09:24)
[2017-01-07] MEDS: Potassium Chloride 20 mEq ER Tab PO SCH (09:24)
[2017-01-07] MEDS: buPROPion 150 mg/24 Hours XL Tab PO SCH (09:25)
[2017-01-07] MEDS ORDERED: Calcium-Vit D 250 mg-125 Units Tab UD PO SCH (10:00)
--- NOTE | 2017-01-07 12:27 | PCM.PYCHPN ---
Psychiatric Progress Note - Psychiatric Progress Note Patient seen today, length of contact: 17 min Patient Chief Complaint: "I'm feeling much better" Problems Identified/Issues Discussed: The patient is seen, chart reviewed and case discussed. She looks better and states she feels better. Denies suicidal ideation and any plans. She is future oriented and agrees to follow her safety plan. Suicide hotline number given. She agrees to go to [facility] and is willing to do that. No psychotic or manic symptoms. Compliant with medications and no side effects. Support and psychoeducation given. Cleared for discharge Medication Change: No Medical Record Reviewed: Yes Mental Status Examination - Cognitive Function Orientation: Person, Place, Situation, Time Memory: Intact Attention: WNL Concentration: WNL Association: WNL Fund of Knowledge: WNL - Mood Mood: Depressed (less so) - Affect Affect: Depressed - Speech Speech: Appropriate - Formal Thought Process Formal Thought Process: No Impairment - Suicidal Ideation Suicidal Ideation: No - Homicidal Ideation Homicidal Ideation: No Goal/Treatment Plan - Goal/Treatment Plan Progress Toward Problem(s) and Goals/Treatment Plan: Depression: -Wellbutrin XL 150 for now -Support and CBT -Close observation Psychosis: -Abilify 10 mg -DC risperdal. Qt is prolonged -Support and CBT Anxiety: -Klonopin to be dc'ed -supportive therapy, relaxation skills and CBT Gabapentin 300 tid Nicotine: -Patch -NV for abstinence
[2017-01-07] MEDS ORDERED: buPROPion 150 mg/24 Hours XL Tab PO SCH (12:28)
--- NOTE | 2017-01-07 15:17 | CP.PCM.PN ---
Subjective - Date & Time of Evaluation Date of Evaluation: 01/07/17 Time of Evaluation: 15:10 - Subjective Subjective: PT D/C BY DR HERNANDEZ, MED REC DONE PER HER, FOLLOWING RX GIVEN TO PT PER DR HERNANDEZ REQUEST OSCAL -D 250 MG-125 UNITS #30 NICOTINE PATCH DAILY #30 GABAPENTIN 300 MG PO TID 30 DAYS NAPHCON-A BID COLACE 100 MG PO BID #30 ABILIFY 10 MG PO HS #30 WELLBUTRIN 300 MG PO DAILY #30 SYNTHROID 100 MCG PO DAILY #30 SYNTHROID 112 MCG PO DAILY #30 F/U IN THE OFFICE WITH DR HERNANDEZ Objective - Vital Signs/Intake and Output Vital Signs (last 24 hours): Temp Pulse Resp BP Pulse Ox 98.6 F 79 20 113/74 95 01/07/17 08:48 01/07/17 08:48 01/07/17 08:48 01/07/17 08:48 01/07/17 08:48 Intake and Output: 01/07/17 01/07/17 06:59 18:59 Intake Total 500 Balance 500 - Medications Medications: Current Medications Aripiprazole (Abilify) 10 mg PO HS [facility] Last Admin: 01/06/17 22:00 Dose: 10 mg Bupropion HCl (Wellbutrin Xl) 300 mg PO DAILY [facility] Calcium/Vitamin D (Oscal-D 250 Mg-125 Units Tab) 1 tab PO DAILY [facility] Last Admin: 01/07/17 09:25 Dose: 1 tab Docusate Sodium (Colace) 100 mg PO BID PRN PRN Reason: Constipation Last Admin: 01/05/17 17:46 Dose: 100 mg Gabapentin (Neurontin) 300 mg PO TID [facility] Last Admin: 01/07/17 14:16 Dose: 300 mg Heparin Sodium (Porcine) (Heparin) 5,000 units SC Q12 [facility] Last Admin: 01/07/17 09:24 Dose: 5,000 units Levothyroxine Sodium (Synthroid) 100 mcg PO 0630 [facility] Last Admin: 01/07/17 06:08 Dose: 100 mcg Levothyroxine Sodium (Synthroid) 112 mcg PO 0630 [facility] Last Admin: 01/07/17 06:08 Dose: 112 mcg Naphazoline HCl/Pheniramine Maleate (Naphcon-A Opht) 0 ml OU BID PRN PRN Reason: EYE ITCHING/REDNESS Nicotine (Nicoderm Cq) 1 patch TD DAILY [facility] Last Admin: 01/07/17 09:30 Dose: 1 patch Pantoprazole Sodium (Protonix Ec Tab) 40 mg PO DAILY [facility] Last Admin: 01/07/17 09:24 Dose: 40 mg Potassium Chloride (K-Dur 20 Meq Er Tab) 40 meq PO DAILY [facility] Last Admin: 01/07/17 09:24 Dose: 40 meq - Labs Labs: 01/05/17 08:19 01/05/17 08:19
--- NOTE | 2017-01-07 15:28 | CARD ---
APPROVED REPORT EKG Measurement Heart [id number] <Conclusion> Normal sinus rhythm Possible Left atrial enlargement Low voltage QRS Borderline ECG
--- NOTE | 2017-01-07 15:35 | CP.PCM.PN ---
Subjective - Date & Time of Evaluation Date of Evaluation: 01/07/17 Time of Evaluation: 15:32 - Subjective Subjective: No new cardiac issues. Objective - Vital Signs/Intake and Output Vital Signs (last 24 hours): Temp Pulse Resp BP Pulse Ox 98.6 F 79 20 113/74 95 01/07/17 08:48 01/07/17 08:48 01/07/17 08:48 01/07/17 08:48 01/07/17 08:48 Intake and Output: 01/07/17 01/07/17 06:59 18:59 Intake Total 500 Balance 500 - Medications Medications: Current Medications Aripiprazole (Abilify) 10 mg PO HS [facility] Last Admin: 01/06/17 22:00 Dose: 10 mg Bupropion HCl (Wellbutrin Xl) 300 mg PO DAILY [facility] Calcium/Vitamin D (Oscal-D 250 Mg-125 Units Tab) 1 tab PO DAILY [facility] Last Admin: 01/07/17 09:25 Dose: 1 tab Docusate Sodium (Colace) 100 mg PO BID PRN PRN Reason: Constipation Last Admin: 01/05/17 17:46 Dose: 100 mg Gabapentin (Neurontin) 300 mg PO TID [facility] Last Admin: 01/07/17 14:16 Dose: 300 mg Heparin Sodium (Porcine) (Heparin) 5,000 units SC Q12 [facility] Last Admin: 01/07/17 09:24 Dose: 5,000 units Levothyroxine Sodium (Synthroid) 100 mcg PO 0630 [facility] Last Admin: 01/07/17 06:08 Dose: 100 mcg Levothyroxine Sodium (Synthroid) 112 mcg PO 0630 [facility] Last Admin: 01/07/17 06:08 Dose: 112 mcg Naphazoline HCl/Pheniramine Maleate (Naphcon-A Opht) 0 ml OU BID PRN PRN Reason: EYE ITCHING/REDNESS Nicotine (Nicoderm Cq) 1 patch TD DAILY [facility] Last Admin: 01/07/17 09:30 Dose: 1 patch Pantoprazole Sodium (Protonix Ec Tab) 40 mg PO DAILY [facility] Last Admin: 01/07/17 09:24 Dose: 40 mg Potassium Chloride (K-Dur 20 Meq Er Tab) 40 meq PO DAILY [facility] Last Admin: 01/07/17 09:24 Dose: 40 meq - Labs Labs: 01/05/17 08:19 01/05/17 08:19 - Neck Exam Neck Exam: Normal Inspection - Respiratory Exam Respiratory Exam: NORMAL BREATHING PATTERN Assessment and Plan (1) Long QT interval Assessment & Plan: Control electrolyte abnormalities and adjust antipsychotic medication. Status: Acute (2) Chest pain Assessment & Plan: Atypical and non-cardiac. Status: Acute
--- NOTE | 2017-01-22 09:12 | DS ---
CHIEF COMPLAINT: Chest pain, hearing voices. HISTORY OF PRESENT ILLNESS: The patient is a 41-year-old female, came to the [facility] Emergency Room with suicidal ideation. As per patient, she took multiple tablets of trazodone, but later on she felt that she is not sure which medications she took and how many tablets she consumed. The patient says that she wants to kill herself. The patient denies any chest pain, shortness of breath. No fever, no nausea, vomiting, diarrhea. No hematuria, no hematochezia. No swelling of . We admitted the patient, kept on 1:1. Psych consult called, was seen. Cardiology consult called with Dr. Lazo. He saw the patient. Psychiatrist cleared the patient for discharge. Plan was after medical stabilization, we will transfer patient to psych, but psychiatrist cleared the patient. We discharged patient to home. Follow up with psychiatrist and her own medical doctor. PAST MEDICAL HISTORY: Anxiety, asthma, COPD, hypertension, diabetes mellitus, fibromyalgia, Grave's disease, hyperthyroidism, posttraumatic stress disorder, schizophrenia. PAST SURGICAL HISTORY: Tonsillectomy. FAMILY HISTORY: Father and mother noncontributory. HABITS: Smoking yes, alcohol yes. No substance abuse. The patient seen and examined in the ER. At this time, she was not complaining about chest pain. Seen by Dr. Lazo, the milling supervisor. No nausea, vomiting, diarrhea. No hematuria, no hematochezia. No headache, no dizziness. PHYSICAL EXAMINATION: VITAL SIGNS: Temperature 98.6, pulse 79, respiratory rate 20, blood pressure 113/74, pulse oximetry 95%. HEENT: Head normocephalic, atraumatic. Eyes PERRLA. Extraocular muscles intact. Conjunctivae pink. Eyelids unremarkable. Nose patent. Mucous membranes moist. NECK: Supple. No carotid bruit, no JVD, no thyromegaly. CHEST: Bilaterally symmetrical. HEART: S1, S2 positive. LUNGS: Clear to auscultation. ABDOMEN: Soft. Bowel sounds positive. No organomegaly. EXTREMITIES: No edema, no cyanosis. NEUROLOGIC: The patient is awake, alert, moving all 4 extremities. No focal deficits. MEDICATIONS: Abilify, Wellbutrin, Oscal, Colace, Neurontin, heparin, Synthroid , Nicoderm, Protonix, potassium. LABORATORIES: White blood cell is 8.4, hemoglobin 14.9, hematocrit 45.5, platelets 218. Sodium 137, potassium 3.9, BUN 8, creatinine 0.8, glucose 83. ASSESSMENT AND PLAN: The patient is a 41-year-old female, has long QT interval. Supervisor Sample saw the patient. According to him, just antipsychotic medications. Chest pain, atypical and noncardiac. Supervisor Sample cleared the patient to be seen as outpatient. Psychiatrist also cleared the patient to be seen as outpatient. We discharged the patient. The patient has history of anxiety, arthritis, asthma, chronic obstructive pulmonary disease, depression, diabetes mellitus, fibromyalgia, Grave's disease , hypertension, posttraumatic stress disorder, schizophrenia. Prescription of medicines given. Will follow up as outpatient. Velma Cho MD cc: [id number] TT: 01/22/2017 09:12:05 en MTDD
== END 2017-01-07 17:00 | disposition home or self-care (01) ==
LOC: C.ER 19:51 → C.9E 01-04 02:49 → C.6T 01-04 11:19
PROVIDERS: ADMIT Internal Medicine; ATTEND Internal Medicine
DX: T43.212A Poisoning by selective serotonin and norepinephrine reuptake inhibitors, intentional self-harm, initial encounter (principal); F33.3 Major depressive disorder, recurrent, severe with psychotic symptoms; D75.1 Secondary polycythemia; E83.51 Hypocalcemia; E83.41 Hypermagnesemia; E11.9 Type 2 diabetes mellitus without complications; I10 Essential (primary) hypertension; F41.1 Generalized anxiety disorder; F17.210 Nicotine dependence, cigarettes, uncomplicated; R07.9 Chest pain, unspecified; J45.909 Unspecified asthma, uncomplicated; J44.9 Chronic obstructive pulmonary disease, unspecified; M79.7 Fibromyalgia; E05.00 Thyrotoxicosis with diffuse goiter without thyrotoxic crisis or storm; F43.10 Post-traumatic stress disorder, unspecified; E87.6 Hypokalemia; Z99.3 Dependence on wheelchair; K59.00 Constipation, unspecified; M19.90 Unspecified osteoarthritis, unspecified site; K21.9 Gastro-esophageal reflux disease without esophagitis

== ENCOUNTER 2017-02-24 15:26 | Emergency (ER) | payer MEDICAID ==
[2017-02-24 15:39] VITALS: RESP 18; TEMP 98.9; O2SAT 99
--- NOTE | 2017-02-24 16:45 | C.PDOC ---
History Of Present Illness 41-year-old female, presents to the emergency department with multiple complaints. Patient states First complaint is feeling unwell for "a very longtime", no pain or weight loss. Patients second complaint is that she feels very flat, "want to get my meds cleaned up, yo!" states wants to remain compliant with psych meds. Patient denies SI. Patient is requesting tests for downs syndrome "because it would explain everything." Patients fourth complaint is recurrent B/L leg edema she is on Lasix 20 daily. Denies shortness of breath , and states she has had this before. States she was admitted in December, and discharged with Synthroid and outpatient f/u, but she has not followed up. SYNTHROID 100 MCG PO DAILY #30 SYNTHROID 112 MCG PO DAILY #30 Time Seen by Provider: 02/24/17 16:26 Chief Complaint (Nursing): Psychiatric Evaluation History Per: Patient History/Exam Limitations: no limitations Past Medical History Reviewed: Historical Data, Nursing Documentation, Vital Signs Vital Signs: Last Vital Signs Temp 98.9 F 02/24/17 15:38 Pulse 89 02/24/17 17:13 Resp 18 02/24/17 17:13 BP 115/76 02/24/17 17:13 Pulse Ox 99 02/24/17 17:13 - Medical History PMH: Anxiety, Arthritis, Asthma, Back Problems, COPD, Depression, Diabetes, Fibromyalgia, Graves' Disease, HTN, Hyperthyroidism, Hypothyroidism, Post Traumatic Stress Disorder, Schizophrenia Denies: Hepatitis, HIV, Chronic Kidney Disease, Seizures, Sexually Transmitted Disease Surgical History: Tonsillectomy Family History: States: No Known Family Hx - Social History Hx Tobacco Use: Yes Hx Alcohol Use: Yes (''Occassional'') Hx Substance Use: No - Immunization History Hx Tetanus Toxoid Vaccination: Yes Hx Influenza Vaccination: Yes Hx Pneumococcal Vaccination: Yes Review Of Systems Except As Marked, All Systems Reviewed And Found Negative. Constitutional: Negative for: Fever, Chills Cardiovascular: Positive for: Edema (leg b/l). Negative for: Chest Pain, Palpitations, Orthopnea, Light Headedness Respiratory: Negative for: Shortness of Breath Gastrointestinal: Negative for: Vomiting, Abdominal Pain Neurological: Negative for: Weakness, Numbness Physical Exam - Physical Exam Appears: Non-toxic, No Acute Distress, Other (Calm and cooperative. No active psychosis.) Skin: Warm, Dry, No Rash Head: Atraumatic Eye(s): bilateral: Normal Inspection Nose: Normal Oral Mucosa: Moist Lips: Normal Appearing Neck: Normal ROM Chest: Symmetrical Cardiovascular: Rhythm Regular, No Murmur Respiratory: Normal Breath Sounds, No Accessory Muscle Use Extremity: Pedal Edema (b/l) Neurological/Psych: Oriented x3 ED Course And Treatment O2 Sat by Pulse Oximetry: 99 Progress - Data Reviewed Data Reviewed: Old records Disposition Counseled Patient/Family Regarding: Diagnosis, Need For Followup - Disposition Referrals: [facility] [Outside] [facility] [Outside] Disposition: HOME/ ROUTINE Disposition Time: 16:51 Condition: GOOD Additional Instructions: TAKE FUROSEMIDE 2 TABS DAILY X 1 WEEK THEN RESUME PRIOR DOSING PREVIOUSLY PRESCRIBED. FOLLOW UP WITH YOUR PMD OR CLINIC FOR FURTHER EVALUATION OF YOUR THYROID, CHRONIC BLOATING. Instructions: Leg Edema (ED) - Clinical Impression Clinical Impression: Leg edema, Bloating - Scribe Statement The provider has reviewed the documentation as recorded by the Shante Monaco All medical record entries made by the Shante were at my direction and personally dictated by me. I have reviewed the chart and agree that the record accurately reflects my personal performance of the history, physical exam, medical decision making, and the department course for this patient. I have also personally directed, reviewed, and agree with the discharge instructions and disposition.
[2017-02-24 17:14] VITALS: BP 115/76; PULSE 89
== END 2017-02-24 17:14 | disposition home or self-care (01) ==
LOC: C.ER 15:26
DX: R60.0 Localized edema (principal); R14.0 Abdominal distension (gaseous)

== ENCOUNTER 2017-02-26 22:01 | Emergency (ER) | payer MEDICAID ==
[2017-02-26 23:13] LABS: BASO # 0.1 K/uL (0.0-0.2); BASO % 0.7 % (0.0-2.0); EOS # 0.1 K/uL (0.0-0.7); EOS % 0.7 % (0.0-4.0); HEMATOCRIT 46.4 % (34.0-47.0); LYMPH # 1.3 K/uL (1.0-4.3); LYMPH % 14.2 % (20.0-40.0); MEAN CELL VOLUME 94.9 fL (81.0-99.0); MEAN CORPUSCULAR HEMOGLOBIN 32.5 pg (27.0-31.0); MEAN CORPUSCULAR HGB CONC 34.3 g/dL (33.0-37.0); MEAN PLATELET VOLUME 8.5 fL (7.2-11.7); MONO # 0.8 K/uL (0.0-0.8); MONO % 8.6 % (0.0-10.0); NRBC % 0.1 % (0.0-2.0); RED CELL DISTRIBUTION WIDTH 14.6 % (11.5-14.5); WHITE BLOOD COUNT 9.1 K/uL (4.8-10.8)
[2017-02-26 23:19] LABS: CHLORIDE 102 mmol/L (98-107); SODIUM 132 mmol/L (132-148)
[2017-02-26 23:21] LABS: GFR AFRICAN-AMERICAN > 60
[2017-02-26 23:22] LABS: ALB/GLOB RATIO 1.1 (1.0-2.1); ALKALINE PHOSPHATASE 117 U/L (38-126); ALT/SGPT 17 U/L (9-52); AST/SGOT 60 U/L (14-36); BILIRUBIN,TOTAL 1.4 mg/dL (0.2-1.3); BLOOD UREA NITROGEN 6 mg/dL (7-17); CALCIUM 8.2 mg/dl (8.6-10.4); CARBON DIOXIDE 22 mmol/L (22-30); GLUCOSE,RANDOM 124 mg/dL (65-105); TOTAL PROTEIN 7.7 g/dL (6.3-8.3)
[2017-02-26 23:22] LABS: RBC URINE < 1 /hpf (0-3); URINE BACTERIA OCC (<OCC); URINE BILIRUBIN NEGATIVE (NEGATIVE); URINE BLOOD NEGATIVE (NEGATIVE); URINE COLOR Yellow (YELLOW); URINE GLUCOSE (UA) NORMAL (Normal); URINE KETONE NEGATIVE (NEGATIVE); URINE LEUKOCYTE ESTERASE NEG Leu/uL (Negative); URINE PROTEIN NEGATIVE (NEGATIVE); URINE UROBILINOGEN NORMAL mg/dL (0.2-1.0); WBC URINE 1 /hpf (0-5)
[2017-02-26 23:23] LABS: ALCOHOL SERUM < 10 mg/dl (0-10)
--- NOTE | 2017-02-27 00:16 | C.PDOC ---
Time Seen by Provider: 02/26/17 22:27 Chief Complaint (Nursing): Psychiatric Evaluation History Per: Patient Onset/Duration Of Symptoms: Unknown Current Symptoms Are (Timing): Still Present Suicide/Self Injury Attempted (Context): None Modifying Factor(s): None Severity: Moderate Associated Symptoms: Anxiety, Depression (?). denies: Suicidal Thoughts, Suicidal Plan Additional History Per: Prior Records Past Medical History Reviewed: Historical Data, Nursing Documentation, Vital Signs Vital Signs: Last Vital Signs Temp 98.2 F 02/26/17 22:16 Pulse 100 H 02/26/17 22:16 Resp 22 02/26/17 22:16 BP 136/85 02/26/17 22:16 Pulse Ox 96 02/27/17 00:20 - Medical History PMH: Anxiety, Arthritis, Asthma, Back Problems, COPD, Depression, Diabetes, Fibromyalgia, Graves' Disease, HTN, Hypothyroidism, Post Traumatic Stress Disorder, Schizophrenia Surgical History: Tonsillectomy Family History: States: Unknown Family Hx - Social History Hx Tobacco Use: Yes Hx Alcohol Use: Yes (''Occassional'') Hx Substance Use: No - Immunization History Hx Tetanus Toxoid Vaccination: Yes Hx Influenza Vaccination: Yes Hx Pneumococcal Vaccination: Yes Review Of Systems Except As Marked, All Systems Reviewed And Found Negative. Constitutional: Negative for: Fever Respiratory: Negative for: Shortness of Breath Gastrointestinal: Negative for: Abdominal Pain Skin: Negative for: Rash Neurological: Negative for: Weakness, Numbness, Seizures Physical Exam - Physical Exam Appears: Non-toxic, No Acute Distress Skin: Normal Color, Warm, Dry, No Rash Head: Atraumatic, Normacephalic Eye(s): bilateral: PERRL, EOMI Neck: Normal ROM, Supple Cardiovascular: Rhythm Regular Respiratory: Normal Breath Sounds, No Accessory Muscle Use Gastrointestinal/Abdominal: Soft, No Tenderness Extremity: Normal ROM, No Deformity Neurological/Psych: Oriented x3, Normal Motor, Normal Sensation ED Course And Treatment - Laboratory Results Result Diagrams: 02/26/17 23:08 02/26/17 23:08 Lab Interpretation: No Acute Changes Urine POC: Negative O2 Sat by Pulse Oximetry: 96 Pulse Ox Interpretation: Normal Disposition - Disposition Disposition Time: 01:00 Condition: STABLE - Clinical Impression Clinical Impression: Evaluation by psychiatric service required Physician Patient Turnover Patient Signed Over To: Kishor Harmon 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
[2017-02-27 04:10] VITALS: BP 126/57; PULSE 78; RESP 16; TEMP 97.8; O2SAT 99
--- NOTE | 2017-02-27 08:28 | RAD ---
PROCEDURE: CHEST RADIOGRAPH, 1 VIEW HISTORY: psych screen COMPARISON: 11/21/2014 FINDINGS: LUNGS: Mild venous congestion. Question left basilar airspace opacity. PLEURA: As above. CARDIOVASCULAR: Cardiomegaly. OSSEOUS STRUCTURES: No significant abnormalities. VISUALIZED UPPER ABDOMEN: Normal. OTHER FINDINGS: None. IMPRESSION: Mild venous congestion. Question left basilar airspace opacity.
--- NOTE | 2017-02-28 23:06 | CARD ---
APPROVED REPORT EKG Measurement Heart [id number] <Conclusion> Normal sinus rhythm Possible Left atrial enlargement Prolonged QT Abnormal ECG
== END 2017-02-27 04:09 | disposition short-term general hospital (02) ==
LOC: SUPCPDRO 22:01 → C.ER 22:01
DX: F20.9 Schizophrenia, unspecified (principal)

== ENCOUNTER 2017-04-24 10:07 | Emergency (ER) | payer MEDICAID ==
[2017-04-24 10:17] VITALS: BMI 50.1
--- NOTE | 2017-04-24 10:41 | C.PDOC ---
History Of Present Illness Patient is a 41 y/o female presents to the emergency department for evaluation of shortness of breath for the last 2 days. Patient states symptoms are occasionally worse with exertion and when she lays down. Patient is currently asymptomatic. Otherwise, denies any chest pain, fever, or cough. Denies any history of smoking. SOB X 2 DAYS. PS OCC WORSE W EXERTION AND WHEN LAYS DOWN. CURRENTLY ASYMPT. NO CP, FEVER, COUGH. +HO SMOKING EXAM NARD NONTOXIC HEENT NEG LUNGS NEG NO EDEMA REMAINDER NEG Time Seen by Provider: 04/24/17 10:22 Chief Complaint (Nursing): Shortness Of Breath History Per: Patient History/Exam Limitations: no limitations Onset/Duration Of Symptoms: Days (2) Current Symptoms Are (Timing): Gone Exacerbating Factor(s): Exertion, Laying Flat Severity: None Pain Scale Rating Of: 0 Associated Symptoms: denies: Fever, Chills, Sweating, Chest Pain, Bloody Cough, Productive Cough, Heart Racing, Leg/Calf Pain, Ankle/Leg Swelling, Dizziness, Light-headedness, Anxiety, Tingling In Hands Or Face, Musle Spasms In Hands Or Feet Recent travel outside of the [place]: No Additional History Per: Patient Past Medical History Reviewed: Historical Data, Nursing Documentation, Vital Signs Vital Signs: Last Vital Signs Temp 98.0 F 04/24/17 10:17 Pulse 98 H 04/24/17 10:17 Resp 15 04/24/17 11:11 BP 143/84 04/24/17 10:17 Pulse Ox 97 04/24/17 11:56 - Medical History PMH: Anxiety, Arthritis, Asthma, Back Problems, COPD, Depression, Diabetes, Fibromyalgia, Graves' Disease, HTN, Hypothyroidism, Post Traumatic Stress Disorder, Schizophrenia Denies: Hepatitis, HIV, Chronic Kidney Disease, Seizures, Sexually Transmitted Disease Comment Only: Hyperthyroidism (DENIES THIS ADMISSION) Surgical History: Tonsillectomy - [facility] Procedures ASSISTANCE WITH RESPIRATORY VENTILATION, <24 HRS, CPAP (02/27/17) MEDICATION MANAGEMENT (02/27/17) Family History: States: Unknown Family Hx - Social History Hx Tobacco Use: Yes Hx Alcohol Use: Yes (''Occassional'') Hx Substance Use: No - Immunization History Hx Tetanus Toxoid Vaccination: Yes Hx Influenza Vaccination: Yes Hx Pneumococcal Vaccination: Yes Review Of Systems Except As Marked, All Systems Reviewed And Found Negative. Constitutional: Negative for: Fever, Chills Cardiovascular: Negative for: Chest Pain, Palpitations, Edema, Light Headedness Respiratory: Positive for: Shortness of Breath. Negative for: Cough, Hemoptysis , Sputum Gastrointestinal: Negative for: Nausea, Vomiting Physical Exam - Physical Exam Appears: Non-toxic, No Acute Distress (No respiratory distress) Skin: Normal Color, Warm, Dry Head: Atraumatic, Normacephalic Eye(s): bilateral: Normal Inspection, PERRL, EOMI Ear(s): Bilateral: Normal Nose: Normal Oral Mucosa: Moist Throat: Normal, No Erythema, No Exudate Neck: Normal ROM, Supple Chest: Symmetrical Cardiovascular: Rhythm Regular, No Murmur Respiratory: Normal Breath Sounds, No Rales, No Rhonchi, No Wheezing Gastrointestinal/Abdominal: Soft, No Tenderness Extremity: Normal ROM, No Pedal Edema, No Deformity Extremity: Bilateral: Atraumatic Neurological/Psych: Oriented x3, Normal Speech, Normal Cognition ED Course And Treatment - Laboratory Results Result Diagrams: 04/24/17 11:44 04/24/17 11:44 ECG: Interpreted By Me, Viewed By Me ECG Rhythm: Sinus Rhythm ECG Interpretation: No Acute Changes Rate From EC O2 Sat by Pulse Oximetry: 97 (on RA) Pulse Ox Interpretation: Normal - Radiology CXR: Interpreted by Me CXR Interpretation: Yes: No Acute Disease Progress Note: EKG, CXR, blood work ordered and reviewed. On reassessment, patient is resting comfortably, no acute distress. Progress - Re-Evaluation Re-evaluation Note: 04/24/17 12:27 NARD VSS - Data Reviewed Data Reviewed: Lab, Diagnostic imaging, Old records Disposition Counseled Patient/Family Regarding: Studies Performed, Diagnosis, Need For Followup, Smoking Cessation - Disposition Referrals: YOUR,PMD [Other] Disposition: HOME/ ROUTINE Disposition Time: 12:27 Condition: GOOD Additional Instructions: YOUR BLOOD TEST AND CHEST XRAY ARE NEGATIVE. SEE YOUR PMD. Instructions: How to Stop Smoking (ED), Dyspnea (ED) - Clinical Impression Clinical Impression: Dyspnea - Scribe Statement The provider has reviewed the documentation as recorded by the Scribe Cassandra Pagan All medical record entries made by the Scribe were at my direction and personally dictated by me. I have reviewed the chart and agree that the record accurately reflects my personal performance of the history, physical exam, medical decision making, and the department course for this patient. I have also personally directed, reviewed, and agree with the discharge instructions and disposition.
--- NOTE | 2017-04-24 11:22 | RAD ---
HISTORY: SOB COMPARISON: Chest x-ray performed 02/27/17 TECHNIQUE: Chest PA and lateral FINDINGS: Examination limited by habitus. LUNGS: Mild right basilar atelectasis. Please note that chest x-ray has limited sensitivity for the detection of pulmonary masses. PLEURA: No significant pleural effusion identified. No definite pneumothorax . CARDIOVASCULAR: Heart size appears within normal limits. OSSEOUS STRUCTURES: Degenerative changes of the spine. VISUALIZED UPPER ABDOMEN: Retrocardiac air-fluid level compatible with moderate to large size hiatal hernia. OTHER FINDINGS: None. IMPRESSION: Mild right basilar atelectasis. Retrocardiac air-fluid level compatible with moderate to large sized hiatal hernia.
[2017-04-24 11:58] LABS: BLOOD UREA NITROGEN 6 mg/dL (7-17); GFR AFRICAN-AMERICAN > 60; GFR NON-AFRICAN AMERICAN > 60
[2017-04-24 11:59] LABS: CALCIUM 8.1 mg/dl (8.6-10.4)
[2017-04-24 12:02] LABS: BASO # 0.1 K/uL (0.0-0.2); BASO % 0.8 % (0.0-2.0); EOS # 0.1 K/uL (0.0-0.7); EOS % 1.4 % (0.0-4.0); LYMPH # 1.1 K/uL (1.0-4.3); LYMPH % 15.5 % (20.0-40.0); MEAN CELL VOLUME 94.9 fL (81.0-99.0); MEAN CORPUSCULAR HEMOGLOBIN 31.7 pg (27.0-31.0); MEAN CORPUSCULAR HGB CONC 33.4 g/dL (33.0-37.0); MEAN PLATELET VOLUME 8.8 fL (7.2-11.7); MONO # 0.5 K/uL (0.0-0.8); MONO % 7.5 % (0.0-10.0); NEUT # 5.1 K/uL (1.8-7.0); NEUT % 74.8 % (50.0-75.0); NRBC % 0.2 % (0.0-2.0); RBC 5.64 Mil/uL (3.80-5.20); RED CELL DISTRIBUTION WIDTH 16.4 % (11.5-14.5); WHITE BLOOD COUNT 6.8 K/uL (4.8-10.8)
[2017-04-24 12:06] LABS: HEMOGLOBIN 17.9 g/dL (11.0-16.0)
[2017-04-24 12:08] LABS: B-TYPE NATRIURETIC PEPTIDE 164 pg/mL (0-450)
[2017-04-24 13:20] VITALS: BP 135/84; PULSE 81; RESP 17; TEMP 98.6; O2SAT 98
--- NOTE | 2017-04-25 14:43 | CARD ---
APPROVED REPORT EKG Measurement Heart [id number] <Conclusion> Normal sinus rhythm Normal ECG
== END 2017-04-24 14:05 | disposition home or self-care (01) ==
LOC: C.ER 10:07
DX: R06.00 Dyspnea, unspecified (principal)

== ENCOUNTER 2018-07-15 14:23 | Emergency (ER) | payer MEDICAID ==
[2018-07-15 14:23] VITALS: BMI 50.1
--- NOTE | 2018-07-15 15:27 | C.PDOC ---
History Of Present Illness 42 female presents to the ED for evaluation of acute exacerbated chronic lower abdominal pain that started today. Patient states the abdominal pain is "all the time", recurrent pain is worse than usual and last bowel movement was this morning. Reports feeling nauseous, symptom has now resolved. Denies UTI symptoms, fever, vomiting, and any other associated symptoms. ACUTE EXAC CHRONIC LOWER ABD PAIN TODAY. PS HO ABD PAIN "ALL THE TIME" CURRENT PAIN MORE WORSE THAN USUAL. LOWER ABD. DENIES UTI SX. LAST BM THIS MORNING. NO FEVER, +NAUSEA NOW RESOLVED. EXAM NONTOXIC OBESE ABD OBESE SOFT NT ND NO R/G PSYCH CALM FLAT AFFECTIVE APPROPRIATE REMAINDER NEG Time Seen by Provider: 07/15/18 15:13 Chief Complaint (Nursing): Abdominal Pain History Per: Patient History/Exam Limitations: no limitations Onset/Duration Of Symptoms: Hrs Current Symptoms Are (Timing): Still Present Past Medical History Reviewed: Historical Data, Nursing Documentation, Vital Signs Vital Signs: Last Vital Signs Temp 99 F 07/15/18 14:34 Pulse 77 07/15/18 14:34 Resp 20 07/15/18 14:34 BP 123/89 07/15/18 14:34 Pulse Ox 97 07/15/18 14:34 - Medical History PMH: Anxiety, Arthritis, Asthma, Back Problems, COPD, Depression, Diabetes, Fibromyalgia, Graves' Disease, HTN, Hypothyroidism, Post Traumatic Stress Disorder, Schizophrenia Denies: Hepatitis, HIV, Chronic Kidney Disease, Seizures, Sexually Transmitted Disease Comment Only: Hyperthyroidism (DENIES THIS ADMISSION) Surgical History: Tonsillectomy - [facility] Procedures ASSISTANCE WITH RESPIRATORY VENTILATION, <24 HRS, CPAP (02/27/17) MEDICATION MANAGEMENT (02/27/17) Family History: States: Unknown Family Hx - Social History Hx Tobacco Use: Yes Hx Alcohol Use: Yes (''Occassional'') Hx Substance Use: No - Immunization History Hx Tetanus Toxoid Vaccination: Yes Hx Influenza Vaccination: Yes Hx Pneumococcal Vaccination: Yes Review Of Systems Except As Marked, All Systems Reviewed And Found Negative. Constitutional: Negative for: Fever, Chills Gastrointestinal: Positive for: Nausea, Abdominal Pain (lower). Negative for: Vomiting Physical Exam - Physical Exam Appears: Non-toxic, Other (obese.) Skin: Normal Color, Warm, Dry Head: Atraumatic, Normacephalic Eye(s): bilateral: Normal Inspection Oral Mucosa: Moist Neck: Normal ROM, Supple Chest: Symmetrical, No Deformity Cardiovascular: Rhythm Regular, No Murmur Respiratory: Other (NARD) Gastrointestinal/Abdominal: Normal Exam, Soft, No Tenderness, No Guarding, No Rebound, Other (abdomen is obese. ) Extremity: Normal ROM (x4) Neurological/Psych: Oriented x3, Normal Speech, Normal Motor, Normal Sensation, Normal Reflexes, Other (calm. flat affective appropriate. ) Gait: Steady ED Course And Treatment - Laboratory Results Result Diagrams: 07/15/18 15:44 07/15/18 15:44 O2 Sat by Pulse Oximetry: 97 (RA) Pulse Ox Interpretation: Normal Progress - Data Reviewed Data Reviewed: Lab, Old records Medical Decision Making Medical Decision Making: Plan: --Blood sent. --Urinalysis. Disposition Counseled Patient/Family Regarding: Studies Performed, Diagnosis, Need For Followup, Rx Given - Disposition Referrals: YOUR,PMD [Other] Disposition: HOME/ ROUTINE Disposition Time: 17:01 Condition: IMPROVED Prescriptions: Ibuprofen [Motrin] 600 mg PO Q6 #30 tab Nitrofurantoin Macrocrystals [Macrobid] 1 cap PO BID #14 cap Phenazopyridine HCl [Pyridium] 200 mg PO BID #6 tablet Instructions: Urinary Tract Infection, Adult (DC) Forms: [employer] (Slovak) - Clinical Impression Clinical Impression: UTI (urinary tract infection) - Scribe Statement The provider has reviewed the documentation as recorded by the Scribe (Sivan Higginbotham) Provider Attestation: All medical record entries made by the Scribe were at my direction and personally dictated by me. I have reviewed the chart and agree that the record accurately reflects my personal performance of the history, physical exam, medical decision making, and the department course for this patient. I have also personally directed, reviewed, and agree with the discharge instructions and disposition.
[2018-07-15 15:49] LABS: BASO # 0.1 K/uL (0.0-0.2); BASO % 1.2 % (0.0-2.0); EOS # 0.1 K/uL (0.0-0.7); EOS % 0.8 % (0.0-4.0); HEMOGLOBIN 16.7 g/dL (11.0-16.0); LYMPH # 1.4 K/uL (1.0-4.3); LYMPH % 15.1 % (20.0-40.0); MEAN CELL VOLUME 98.2 fL (81.0-99.0); MEAN CORPUSCULAR HEMOGLOBIN 34.7 pg (27.0-31.0); MEAN CORPUSCULAR HGB CONC 35.3 g/dL (33.0-37.0); MEAN PLATELET VOLUME 8.5 fL (7.2-11.7); MONO # 0.9 K/uL (0.0-0.8); MONO % 9.5 % (0.0-10.0); NEUT # 6.7 K/uL (1.8-7.0); NEUT % 73.4 % (50.0-75.0); NRBC % 0.1 % (0.0-2.0); RBC 4.8 Mil/uL (3.80-5.20); RED CELL DISTRIBUTION WIDTH 16.3 % (11.5-14.5); WHITE BLOOD COUNT 9.2 K/uL (4.8-10.8)
[2018-07-15 16:05] LABS: ALB/GLOB RATIO 1.2 (1.0-2.1); ALBUMIN 4.2 g/dL (3.5-5.0); ALT/SGPT 31 U/L (9-52); AST/SGOT 33 U/L (14-36); BLOOD UREA NITROGEN 6 mg/dL (7-17); CALCIUM 9.3 mg/dl (8.6-10.4); GFR NON-AFRICAN AMERICAN > 60; LIPASE 66 U/L (23-300)
[2018-07-15 16:52] LABS: SQUAMOUS EPITHIAL 2 /hpf (0-5); URINE BILIRUBIN NEGATIVE (NEGATIVE); URINE BLOOD 3+ (NEGATIVE); URINE CLARITY Clear (Clear); URINE COLOR Red (YELLOW); URINE GLUCOSE (UA) NORMAL (Normal); URINE LEUKOCYTE ESTERASE 1+ Leu/uL (Negative); URINE PROTEIN 1+ mg/dL (NEGATIVE); URINE UROBILINOGEN NORMAL mg/dL (0.2-1.0)
[2018-07-15 17:42] VITALS: TEMP 98.6
[2018-07-15 19:27] VITALS: BP 114/74; PULSE 72; RESP 17; O2SAT 95
== END 2018-07-15 19:40 | disposition home or self-care (01) ==
LOC: C.ER 14:23
DX: N39.0 Urinary tract infection, site not specified (principal)

== ENCOUNTER 2018-07-16 19:26 | Emergency (ER) | payer MEDICAID ==
[2018-07-16 19:26] VITALS: BMI 50.1
--- NOTE | 2018-07-16 20:16 | C.PDOC ---
History Of Present Illness 42 year old female with PMHx schizophrenia is brought to the ED for evaluation of taking to herself. Patient was brought in by a family member, states symptoms are getting worse. Patient denies SI/HI, fever, chills, numbness, weakness, other complaints. Chief Complaint (Nursing): Psychiatric Evaluation History Per: Patient, Family History/Exam Limitations: clinical condition Onset/Duration Of Symptoms: Days Current Symptoms Are (Timing): Still Present Suicide/Self Injury Attempted (Context): None Modifying Factor(s): None Associated Symptoms: Paranoia. denies: Depression, Suicidal Thoughts, Suicidal Plan Recent travel outside of the [place]: No Additional History Per: Patient, Family Past Medical History Reviewed: Historical Data, Nursing Documentation, Vital Signs Vital Signs: Last Vital Signs Temp 98.8 F 07/16/18 19:47 Pulse 76 07/16/18 19:47 Resp 18 07/16/18 19:47 BP 131/92 H 07/16/18 19:47 Pulse Ox 95 07/16/18 19:47 - Medical History PMH: Anxiety, Arthritis, Asthma, Back Problems, COPD, Depression, Diabetes, Fibromyalgia, Graves' Disease, HTN, Hypothyroidism, Post Traumatic Stress Disorder, Schizophrenia Denies: Hepatitis, HIV, Chronic Kidney Disease, Seizures, Sexually Transmitted Disease Comment Only: Hyperthyroidism (DENIES THIS ADMISSION) Surgical History: Tonsillectomy - [facility] Procedures ASSISTANCE WITH RESPIRATORY VENTILATION, <24 HRS, CPAP (02/27/17) MEDICATION MANAGEMENT (02/27/17) Family History: States: Unknown Family Hx - Social History Hx Tobacco Use: Yes Hx Alcohol Use: Yes (''Occassional'') Hx Substance Use: No - Immunization History Hx Tetanus Toxoid Vaccination: Yes Hx Influenza Vaccination: Yes Hx Pneumococcal Vaccination: Yes Review Of Systems Constitutional: Negative for: Fever, Chills Cardiovascular: Negative for: Chest Pain Respiratory: Negative for: Shortness of Breath Gastrointestinal: Negative for: Nausea, Vomiting Skin: Negative for: Rash Neurological: Negative for: Weakness, Numbness Psych: Positive for: Psychosis. Negative for: Depression, Suicidal ideation Physical Exam - Physical Exam Appears: Non-toxic, No Acute Distress Skin: Normal Color, Warm, Dry Head: Atraumatic, Normacephalic Eye(s): bilateral: Normal Inspection Neck: Normal ROM, Supple Chest: Symmetrical Cardiovascular: Rhythm Regular Respiratory: Normal Breath Sounds, No Rales, No Rhonchi, No Wheezing Gastrointestinal/Abdominal: Soft, No Tenderness, No Guarding, No Rebound Extremity: Normal ROM, No Tenderness, No Swelling Neurological/Psych: Oriented x3, Normal Speech, Normal Cognition, Other (calm, cooperative, no focal deficits) Gait: Steady ED Course And Treatment - Laboratory Results Result Diagrams: 07/16/18 20:22 07/16/18 20:22 ECG: Interpreted By Me, Viewed By Me ECG Rhythm: Sinus Rhythm, Nonspecific Changes ECG Interpretation: No Acute Changes Interpretation Of ECG: NSR, nonspc. ST-T changes, no acute changes, abnormal tracings. Rate From EC O2 Sat by Pulse Oximetry: 95 (ON RA ) Pulse Ox Interpretation: Normal - Radiology CXR: Interpreted by Me CXR Interpretation: Yes: Other (poor inspiration, pending chest CT.) - CT Scan/US CT chest Other Rad Studies (CT/US): Read By Radiologist, Radiology Report Reviewed CT/US Interpretation: CT SCAN OF THE CHEST WITHOUT IV CONTRAST. CLINICAL INDICATION: Psychiatric clearance. TECHNIQUE: Axial and reformatted sagittal and coronal images of the chest obtained without IV contrast administration. FINDINGS: Large retrocardiac hiatal hernia. Most of the stomach is noted in the posterior mediastinum. Normal unenhanced main pulmonary artery and right and left pulmonary arteries. Normal bilateral peripheral pulmonary arteries. Normal thoracic aorta and visualized great vessels. There is no demonstrated aortic aneurysm. Mildly enlarged heart and normal pericardium. Normal mediastinum. Normal hilar regions. Normal visualized trachea and bronchi. The lungs are well expanded. Normal pulmonary parenchyma. Normal pleura. Normal chest wall structures. Mild spondylosis. Mural calcifications of the gallbladder. IMPRESSION: Retrocardiac hiatal hernia. Mural calcifications of the gallbladder. Hepatomegaly with hepatic steatosis. . Electronically signed on Jul 17, 2018 3:57:07 AM EDT by: Concepcion Ayala M.D., Certified by BARB, MSK, Neuroradiology Progress Note: Patient is medically cleared for psych. screening.0400H Medical Decision Making Medical Decision Making: Plan: * Labs * UA Patient was seen by [facility] [place], will be screened by [facility] Disposition - Disposition Disposition Time: 07:00 Condition: STABLE Forms: [employer] (Kinyarwanda) - Clinical Impression Clinical Impression: Schizophrenia, acute - Scribe Statement The provider has reviewed the documentation as recorded by the Scribe Yoav Bello All medical record entries made by the Thaisibmehnaz were at my direction and personally dictated by me. I have reviewed the chart and agree that the record accurately reflects my personal performance of the history, physical exam, medical decision making, and the department course for this patient. I have also personally directed, reviewed, and agree with the discharge instructions and disposition.
[2018-07-16 20:43] LABS: BASO # 0.1 K/uL (0.0-0.2); EOS # 0.1 K/uL (0.0-0.7); EOS % 0.8 % (0.0-4.0); HEMOGLOBIN 16.7 g/dL (11.0-16.0); LYMPH # 1.6 K/uL (1.0-4.3); LYMPH % 21.3 % (20.0-40.0); MEAN CELL VOLUME 97.6 fL (81.0-99.0); MEAN CORPUSCULAR HEMOGLOBIN 34.4 pg (27.0-31.0); MEAN CORPUSCULAR HGB CONC 35.3 g/dL (33.0-37.0); MEAN PLATELET VOLUME 8.4 fL (7.2-11.7); MONO # 0.8 K/uL (0.0-0.8); MONO % 11.4 % (0.0-10.0); NEUT # 4.8 K/uL (1.8-7.0); NEUT % 65.5 % (50.0-75.0); NRBC % 0.1 % (0.0-2.0); RBC 4.85 Mil/uL (3.80-5.20); RED CELL DISTRIBUTION WIDTH 15.8 % (11.5-14.5); WHITE BLOOD COUNT 7.3 K/uL (4.8-10.8)
[2018-07-16 20:52] LABS: ALB/GLOB RATIO 1.3 (1.0-2.1); ALBUMIN 3.9 g/dL (3.5-5.0); ALT/SGPT 26 U/L (9-52); AST/SGOT 31 U/L (14-36); BLOOD UREA NITROGEN 6 mg/dL (7-17); CALCIUM 9.3 mg/dl (8.6-10.4); GFR NON-AFRICAN AMERICAN > 60
[2018-07-16 23:29] LABS: SQUAMOUS EPITHIAL 2 /hpf (0-5); URINE BACTERIA OCC (<OCC); URINE BILIRUBIN NEGATIVE (NEGATIVE); URINE BLOOD 3+ (NEGATIVE); URINE CLARITY Hazy (Clear); URINE COLOR Amber (YELLOW); URINE GLUCOSE (UA) NORMAL (Normal); URINE LEUKOCYTE ESTERASE TRACE Leu/uL (Negative); URINE PROTEIN NEGATIVE (NEGATIVE); URINE UROBILINOGEN NORMAL mg/dL (0.2-1.0)
[2018-07-16 23:57] LABS: BARBITURATES, UR NEGATIVE (NEGATIVE); BENZODIAZEPINES, UR NEGATIVE (NEGATIVE); OPIATES, UR NEGATIVE (NEGATIVE); PHENCYCLIDINE, UR NEGATIVE (NEGATIVE)
[2018-07-17] MEDS ORDERED: Potassium Chloride 20 mEq/15 ml LIQ UD PO STA (01:43)
[2018-07-17] MEDS ORDERED: Potassium Chloride 20 mEq/15 ml LIQ UD ONE (01:59)
--- NOTE | 2018-07-17 09:46 | RAD ---
Date of service: 07/17/2018 PROCEDURE: CHEST RADIOGRAPH, 1 VIEW HISTORY: psych. adm COMPARISON: 04/24/2017. FINDINGS: LUNGS: The lungs are well inflated. There is mild pulmonary venous congestion PLEURA: No pneumothorax or pleural fluid seen. CARDIOVASCULAR: There is moderate cardiomegaly. OSSEOUS STRUCTURES: No significant abnormalities. VISUALIZED UPPER ABDOMEN: Normal. OTHER FINDINGS: There is a large hiatal hernia. IMPRESSION: Moderate cardiomegaly. No active pulmonary disease . Large hiatal hernia.
--- NOTE | 2018-07-17 11:04 | CT ---
Date of service: 07/17/18 CT chest without IV contrast Indication: Clearance for psych screening Technique: Contiguous axial images were obtained through the chest without intravenous contrast enhancement. Sagittal and coronal reconstructions were generated and reviewed. This CT exam was performed using 1 or more of the following dose reduction techniques: Automated exposure control, adjustment of the MAA and/or kV according to patient size, and/or use of iterative reconstruction technique. Radiation dose (DLP): 985.79 MGy-cm. Comparison: Chest x-ray performed 07/17/18 Findings: Examination limited by habitus. The unenhanced mediastinal and hilar vascular structures appear grossly unremarkable. Cardiomegaly. No focal consolidation. No pleural effusion. No pneumothorax. No suspicious pulmonary nodules measuring greater than 5 mm. Large hiatal hernia. 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 Partially imaged hepatomegaly. Degenerative changes of the spine. Impression: Large hiatal hernia. 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 Hepatomegaly. Preliminary impression was provided by MD Lingo.
--- NOTE | 2018-07-18 15:49 | CARD ---
APPROVED REPORT Date of service: 07/17/2018 EKG Measurement Heart [id number] IN [id number] [id number] <Conclusion> Normal sinus rhythm Low voltage QRS Nonspecific T wave abnormality Abnormal ECG
[2018-07-18 17:57] VITALS: BP 116/77; PULSE 95; RESP 19; TEMP 98.6; O2SAT 97
--- NOTE | 2018-07-18 19:11 | PCM.PSYCH ---
Initial Psychiatric Evaluation - Initial Psychiatric Evaluation Type of Admission: Voluntary Legal Status: Capacity Past Psychiatric History - Past Psychiatric History Pertinent Medical Hx (Current Medical&Sleep Prob, Allergies): Allergies Allergy/AdvReac Type Severity Reaction Status Date / Time cefazolin sodium [From Ancef] Allergy RASH Verified 07/15/18 14:38 Penicillins Allergy RASH Verified 07/15/18 14:38 Fluticasone Nasal [Flonase] 1 actuation NS BID #1 spr 03/07/17 Furosemide [Lasix] 20 mg PO DAILY #14 tab 03/07/17 Gabapentin [Neurontin] 100 mg PO TID #20 cap 03/07/17 Levothyroxine [Synthroid] 125 mcg PO ACB #7 tab 03/07/17 Montelukast [Singulair] 10 mg PO HS #7 tab 03/07/17 Potassium Chloride [Klor-Con 10] 10 meq PO BRK #7 ter 03/07/17 Topiramate [Topamax] 50 mg PO BID 14 Days tab 03/07/17 Zolpidem [Ambien] 5 mg PO HS PRN #14 tab 03/07/17 buPROPion XL [Wellbutrin XL] 300 mg PO DAILY #14 t24 03/07/17 ARIPiprazole [Abilify] 10 mg PO DAILY 04/24/17 Docusate Sodium [Dok] 100 mg PO DAILY 04/24/17 Nitrofurantoin Macrocrystals [Macrobid] 1 cap PO BID #14 cap 07/15/18 Phenazopyridine HCl [Pyridium] 200 mg PO BID #6 tablet 07/15/18
== END 2018-07-18 18:10 | disposition designated cancer center or children's hospital (05) ==
LOC: C.ER 19:26 → C.9E 20:30 → UNDOADMIN 20:30 → C.ER 07-18 18:10
DX: F20.9 Schizophrenia, unspecified (principal); I10 Essential (primary) hypertension; E11.9 Type 2 diabetes mellitus without complications; F41.9 Anxiety disorder, unspecified; F43.10 Post-traumatic stress disorder, unspecified; F17.210 Nicotine dependence, cigarettes, uncomplicated
CPT/HCPCS: 36415; 80053; 80320; 80324; 80345; 80346; 80349; 80353; 80358; 80361; 81001; 83735; 83992; 84100; 84702; 85025; 93005; 96372; 99285; J1630

== ENCOUNTER 2018-08-25 02:54 | Emergency (ER) | payer MEDICAID ==
[2018-08-25 02:54] VITALS: BMI 50.1
--- NOTE | 2018-08-25 03:29 | C.PDOC ---
History Of Present Illness 43 year old female is brought to the ED by EMS for evaluation. As per EMS, patient called 911 stating, "I am dying" but did not offer any specific complaints. Upon ED arrival, patient states "I don't feel well," but is unable to elaborate further. Patient states to call her for further details. Patient has an indwelling catheter in place. When asked, she states "I was wetting myself too much" but is unsure of how long she has had the catheter. Additional history limited secondary to patient being a poor historian. Pt with h/o of schizophrenia but denies any psych c/o, no depression, S/H ideations, A/V hallucinations Time Seen by Provider: 08/25/18 03:20 Chief Complaint (Nursing): Psychiatric Evaluation History Per: Patient, EMS History/Exam Limitations: other (poor historian ) Current Symptoms Are (Timing): Still Present Additional History Per: Patient, EMS Past Medical History Reviewed: Historical Data, Nursing Documentation, Vital Signs Vital Signs: Last Vital Signs Temp 98.8 F 08/25/18 03:08 Pulse 88 08/25/18 03:08 Resp 20 08/25/18 03:08 BP 111/75 08/25/18 03:08 Pulse Ox 96 08/25/18 03:08 - Medical History PMH: Anxiety, Arthritis, Asthma, Back Problems, COPD, Depression, Diabetes, Fibromyalgia, Graves' Disease, HTN, Hypothyroidism, Post Traumatic Stress Disorder, Schizophrenia Denies: Hepatitis, HIV, Chronic Kidney Disease, Seizures, Sexually Transmitted Disease Comment Only: Hyperthyroidism (DENIES THIS ADMISSION) Surgical History: Tonsillectomy - [facility] Procedures ASSISTANCE WITH RESPIRATORY VENTILATION, <24 HRS, CPAP (02/27/17) MEDICATION MANAGEMENT (02/27/17) Family History: States: Unknown Family Hx - Social History Hx Tobacco Use: Yes Hx Alcohol Use: Yes (''Occassional'') Hx Substance Use: No - Immunization History Hx Tetanus Toxoid Vaccination: Yes Hx Influenza Vaccination: Yes Hx Pneumococcal Vaccination: Yes Review Of Systems Constitutional: Positive for: Other (feeling unwell ) Physical Exam - Physical Exam Appears: Well, Non-toxic, No Acute Distress Skin: Normal Color, Warm, Dry Head: Atraumatic, Normacephalic Eye(s): bilateral: Normal Inspection Oral Mucosa: Moist Neck: Supple Chest: Symmetrical, No Deformity, No Tenderness Cardiovascular: Rhythm Regular, No Murmur Respiratory: Normal Breath Sounds, No Rales, No Rhonchi, No Wheezing Gastrointestinal/Abdominal: Soft, No Tenderness, No Guarding, No Rebound, Other (obese, indwelling catheter in place ) Back: No CVA Tenderness Extremity: Normal ROM, Capillary Refill (less than 2 seconds ) Neurological/Psych: Oriented x3, Normal Speech, Normal Cognition ED Course And Treatment - Laboratory Results Result Diagrams: 08/25/18 03:53 08/25/18 03:53 O2 Sat by Pulse Oximetry: 96 (on RA) Pulse Ox Interpretation: Normal Progress Note: Bloodwork and urinalysis ordered. Results indicate patient has a urinary tract infection. Patient also has a high white blood cell count. Cipro PO given. Pt remained stable in ED, appears well in NAD, sleeping comfortable. Pt would like her family to be contacted prior to discharge and arrangements made for transport. I discussed the lab results with the patient and informed her that I will continue to contact her family for possible discharge home. Patient is informed that she will be prescribed PO antibiotics for her UTI. Patient acknowledged understanding of this. [id number] A few minutes following our discussion, patient began hysterically screaming and yelling "I love this hospital" repeatedly while clutching her purnima bear and rocking herself back and forth. Haldol IM and Ativan IM administered. Case discussed with encyclopedia research worker, who will evaluate the patient at bedside. Reevaluation Time: 06:35 Reassessment Condition: Improved Disposition - Disposition Disposition Time: 06:35 Condition: STABLE Additional Instructions: Increase PO fluids Take medications as directed Follow up with Dr Pizano or your own urologist Return to ER if fever, vomiting, abdominal pain or worse Prescriptions: Ciprofloxacin [Cipro] 1 tab PO BID #14 tab Ibuprofen [Motrin] 600 mg PO Q6H #14 tab Forms: [employer] (Azerbaijani) - Clinical Impression Clinical Impression: UTI (urinary tract infection), Schizophrenia - PA / INDUSTRIAL EQUIPMENT WIRER / Resident Statement MD/DO has reviewed & agrees with the documentation as recorded. - Scribe Statement The provider has reviewed the documentation as recorded by the Scribe (Sahara Pagan) All medical record entries made by the Scribe were at my direction and personally dictated by me. I have reviewed the chart and agree that the record accurately reflects my personal performance of the history, physical exam, medical decision making, and the department course for this patient. I have also personally directed, reviewed, and agree with the discharge instructions and disposition. Physician Patient Turnover Patient Signed Over To: Mary Story Handoff Comments: pending psych evaluation and disposition
[2018-08-25 03:57] LABS: BASO # 0.1 K/uL (0.0-0.2); BASO % 0.4 % (0.0-2.0); EOS % 0.1 % (0.0-4.0); HEMOGLOBIN 17.1 g/dL (11.0-16.0); LYMPH # 1.6 K/uL (1.0-4.3); LYMPH % 9.2 % (20.0-40.0); MEAN CELL VOLUME 95.9 fL (81.0-99.0); MEAN CORPUSCULAR HEMOGLOBIN 32.7 pg (27.0-31.0); MEAN CORPUSCULAR HGB CONC 34.2 g/dL (33.0-37.0); MEAN PLATELET VOLUME 8.1 fL (7.2-11.7); MONO % 6.2 % (0.0-10.0); NEUT # 14.3 K/uL (1.8-7.0); NEUT % 84.1 % (50.0-75.0); NRBC % 0.1 % (0.0-2.0); PLATELET COUNT 279 K/uL (130-400); RBC 5.21 Mil/uL (3.80-5.20); RED CELL DISTRIBUTION WIDTH 15.3 % (11.5-14.5)
[2018-08-25 04:02] LABS: SQUAMOUS EPITHIAL 13 /hpf (0-5); URINE BACTERIA MANY (<OCC); URINE BILIRUBIN NEGATIVE (NEGATIVE); URINE BLOOD NEGATIVE (NEGATIVE); URINE CLARITY Clear (Clear); URINE COLOR Yellow (YELLOW); URINE GLUCOSE (UA) NORMAL (Normal); URINE LEUKOCYTE ESTERASE 3+ Leu/uL (Negative); URINE PROTEIN NEGATIVE (NEGATIVE); URINE UROBILINOGEN NORMAL mg/dL (0.2-1.0)
[2018-08-25 04:10] LABS: ALB/GLOB RATIO 1.2 (1.0-2.1); ALBUMIN 4.3 g/dL (3.5-5.0); ALT/SGPT 23 U/L (9-52); AST/SGOT 25 U/L (14-36); BLOOD UREA NITROGEN 3 mg/dL (7-17); CALCIUM 9.1 mg/dl (8.6-10.4); GFR NON-AFRICAN AMERICAN > 60
[2018-08-25 04:13] LABS: BARBITURATES, UR NEGATIVE (NEGATIVE); BENZODIAZEPINES, UR NEGATIVE (NEGATIVE); OPIATES, UR NEGATIVE (NEGATIVE); PHENCYCLIDINE, UR NEGATIVE (NEGATIVE)
[2018-08-25 04:27] LABS: BASOPHIL 1 % (0-2); LYMPHOCYTE 6 % (20-40); MONOCYTE 7 % (0-10); NEUTROPHIL 80 % (50-75); REACTIVE LYMPHOCYTES 6 % (0-0); TOTAL CELLS COUNTED 100
[2018-08-25 04:28] LABS: ANISOCYTOSIS SLIGHT; PLATELET ESTIMATE NORMAL (NORMAL)
[2018-08-25 04:29] LABS: TOXIC GRANULATION PRESENT
[2018-08-26 00:07] VITALS: BP 119/69; PULSE 71; RESP 20; TEMP 98; O2SAT 95
== END 2018-08-25 22:00 | disposition home or self-care (01) ==
LOC: C.ER 02:54
DX: N39.0 Urinary tract infection, site not specified (principal); F20.9 Schizophrenia, unspecified
CPT/HCPCS: 80053; 80320; 80324; 80345; 80346; 80349; 80353; 80358; 80361; 81001; 83735; 83992; 84100; 84703; 85025; 96372; 99285; J1630; J2060

== ENCOUNTER 2018-12-12 19:16 | Emergency (ER) | payer MEDICAID | END 2018-12-13 00:46 | disposition home or self-care (01) | LOC: C.ER 12-13 00:46 ==

== ENCOUNTER 2019-01-11 19:31 | Inpatient (IN) | payer MEDICAID ==
[2019-01-11 19:32] VITALS: BMI 50.1
[2019-01-11 20:07] LABS: BASO # 0.1 K/uL (0.0-0.2); BASO % 0.8 % (0.0-2.0); EOS # 0.4 K/uL (0.0-0.7); EOS % 3.9 % (0.0-4.0); HEMOGLOBIN 15.9 g/dL (11.0-16.0); LYMPH # 2.1 K/uL (1.0-4.3); LYMPH % 19.3 % (20.0-40.0); MEAN CORPUSCULAR HEMOGLOBIN 30.4 pg (27.0-31.0); MEAN CORPUSCULAR HGB CONC 33.9 g/dL (33.0-37.0); MEAN PLATELET VOLUME 8.9 fL (7.2-11.7); MONO # 0.7 K/uL (0.0-0.8); MONO % 6.9 % (0.0-10.0); NEUT # 7.5 K/uL (1.8-7.0); NEUT % 69.1 % (50.0-75.0); NRBC % 0.1 % (0.0-2.0); RBC 5.23 Mil/uL (3.80-5.20); RED CELL DISTRIBUTION WIDTH 14.8 % (11.5-14.5); WHITE BLOOD COUNT 10.8 K/uL (4.8-10.8)
[2019-01-11 20:10] LABS: MEAN CELL VOLUME 89.7 fL (81.0-99.0)
[2019-01-11 20:45] LABS: HCG,QUALITATIVE URINE NEGATIVE (NEGATIVE)
[2019-01-11 20:47] LABS: SQUAMOUS EPITHIAL 2 /hpf (0-5); URINE BACTERIA RARE (<OCC); URINE BILIRUBIN NEGATIVE (NEGATIVE); URINE BLOOD NEGATIVE (NEGATIVE); URINE CLARITY Hazy (Clear); URINE COLOR Yellow (YELLOW); URINE GLUCOSE (UA) NORMAL (Normal); URINE LEUKOCYTE ESTERASE NEG Leu/uL (Negative); URINE PROTEIN NEGATIVE (NEGATIVE); URINE UROBILINOGEN NORMAL mg/dL (0.2-1.0)
[2019-01-11 20:58] LABS: ALB/GLOB RATIO 1.3 (1.0-2.1); ALBUMIN 4.1 g/dL (3.5-5.0); ALT/SGPT 13 U/L (9-52); AST/SGOT 25 U/L (14-36); BLOOD UREA NITROGEN 7 mg/dL (7-17); CALCIUM 9.3 mg/dl (8.6-10.4); GFR NON-AFRICAN AMERICAN > 60
[2019-01-11 21:01] LABS: BARBITURATES, UR NEGATIVE (NEGATIVE); BENZODIAZEPINES, UR NEGATIVE (NEGATIVE); OPIATES, UR NEGATIVE (NEGATIVE); PHENCYCLIDINE, UR NEGATIVE (NEGATIVE)
[2019-01-11] MEDS ORDERED: Potassium Chloride 20 mEq ER Tab PO STA (21:09)
[2019-01-11] MEDS ORDERED: Potassium Chloride 20 mEq ER Tab PO ONE (21:26)
[2019-01-11 23:49] VITALS: O2SAT 98
[2019-01-12] MEDS ORDERED: Aluminum Hydroxide/Magnesium Hydroxide Susp (30 mL) PO PRN (02:03)
--- NOTE | 2019-01-12 02:46 | PCM.BM ---
<Jose Kwan - Last Filed: 01/12/19 02:43> Treatment Plan Problems - Problems identified on initial assessmt Altered thought Process Date Initiated: 01/12/19 Time Initiated: 00:00 Assessment reference: NA Status: Active Visual Hallucinations Date Initiated: 01/12/19 Time Initiated: 00:00 Assessment reference: NA Status: Active Treatment assets and liabiliti Patient Assests: negotiates basic needs Patient Liabilities: relationship conflicts, medical problems - Milieu Protocol Maintain good personal hygiene: daily Encourage regular showers, daily Remind patient to perform daily oral care, daily Assist patient to perform ADL's Conduct patient checks and document Observation sheet: Q15 minutes Maintain personal safety: every shift Educate patient to report safety concerns to staff, every shift Monitor environment for contraband/sharps Medication safety: Monitor for expected outcome, potential side effects: every shift, Assess barriers to learning: every shift, Assess readiness for medication education: every shift <Trupti Hernandez - Last Filed: 01/13/19 13:25> - Diagnosis (1) Schizophrenia Status: Acute Interventions: 01/13/19 13:25 * Assess/adjust medications daily and /or as needed * Discuss risks, benefits, sided effects and alternatives of medications * See patient on an individual basis 7x/week to assess level of delusional thoughts/ideation * <Jovanna Bey - Last Filed: 01/14/19 11:26> Family Contact Family involvement: Famliy/SO not involved - Goals for Treatment Patient goals for treatment: "I want to leave." Discharge/Continuing Care - Education Needs Education Needs: Patient Medication, Patient Coping Skills - Discharge Discharge Criteria: Tolerates medication w/o severe side effects, Reduction of target symptoms Discharge to:: Home - Treatment Team Participation Discussed with Family/SO: No Was Patient/Family/SO present at Treatment Team Meeting: Yes
--- NOTE | 2019-01-12 05:04 | C.PDOC ---
History Of Present Illness 43 year old female presents to the ED for psychiatric evaluation. Patient states she has been feeling paranoid, thinking that people are looking at her. She denies suicidal/homicidal ideation or any physical complaints at this time. Chief Complaint (Nursing): Psychiatric Evaluation History Per: Patient History/Exam Limitations: no limitations Onset/Duration Of Symptoms: Hrs Current Symptoms Are (Timing): Still Present Associated Symptoms: Paranoia. denies: Suicidal Thoughts, Suicidal Plan Additional History Per: Patient Past Medical History Reviewed: Historical Data, Nursing Documentation, Vital Signs Vital Signs: Last Vital Signs Temp 98.6 F 01/11/19 23:48 Pulse 92 H 01/11/19 23:48 Resp 20 01/11/19 23:48 BP 119/74 01/11/19 23:48 Pulse Ox 98 01/11/19 23:48 - Medical History PMH: Anxiety, Arthritis, Asthma, Back Problems, COPD, Depression, Fibromyalgia, Graves' Disease, Hypothyroidism (Reports having Ami), Post Traumatic Stress Disorder, Schizophrenia Denies: Diabetes, Hepatitis, HIV, HTN, Chronic Kidney Disease, Seizures, Sexually Transmitted Disease Comment Only: Hyperthyroidism (DENIES THIS ADMISSION) Surgical History: Tonsillectomy - [facility] Procedures ASSISTANCE WITH RESPIRATORY VENTILATION, <24 HRS, CPAP (02/27/17) MEDICATION MANAGEMENT (02/27/17) Family History: States: Unknown Family Hx - Social History Hx Tobacco Use: Yes Hx Alcohol Use: No Hx Substance Use: No - Immunization History Hx Tetanus Toxoid Vaccination: Yes Hx Influenza Vaccination: Yes Hx Pneumococcal Vaccination: Yes Review Of Systems Psych: Positive for: Other (paranoia). Negative for: Suicidal ideation Physical Exam - Physical Exam Appears: Non-toxic, No Acute Distress Skin: Normal Color, Warm, Dry Oral Mucosa: Moist Neck: Supple Chest: Symmetrical, No Deformity Respiratory: No Accessory Muscle Use Extremity: Normal ROM Neurological/Psych: Normal Speech, Normal Cognition ED Course And Treatment - Laboratory Results Result Diagrams: 01/11/19 19:58 01/11/19 19:58 Lab Results: Total Bilirubin 0.4 mg/dL (0.2-1.3) 01/11/19 19:58 AST 25 U/L (14-36) 01/11/19 19:58 ALT 13 U/L (9-52) 01/11/19 19:58 Alkaline Phosphatase 123 U/L (38-126) 01/11/19 19:58 Total Protein 7.4 g/dL (6.3-8.3) 01/11/19 19:58 Albumin 4.1 g/dL (3.5-5.0) 01/11/19 19:58 Globulin 3.3 gm/dL (2.2-3.9) 01/11/19 19:58 Albumin/Globulin Ratio 1.3 (1.0-2.1) 01/11/19 19:58 Urine Color Yellow (YELLOW) 01/11/19 20:37 Urine Clarity Hazy (Clear) 01/11/19 20:37 Urine pH 6.0 (5.0-8.0) 01/11/19 20:37 Ur Specific [place] 1.006 (1.003-1.030) 01/11/19 20:37 Urine Protein Negative mg/dL (NEGATIVE) 01/11/19 20:37 Urine Glucose (UA) Normal mg/dL (Normal) 01/11/19 20:37 Urine Ketones Negative mg/dL (NEGATIVE) 01/11/19 20:37 Urine Blood Negative (NEGATIVE) 01/11/19 20:37 Urine Nitrate Negative (NEGATIVE) 01/11/19 20:37 Urine Bilirubin Negative (NEGATIVE) 01/11/19 20:37 Urine Urobilinogen Normal mg/dL (0.2-1.0) 01/11/19 20:37 Ur Leukocyte Esterase Neg Volodymyr/uL (Negative) 01/11/19 20:37 Urine WBC (Auto) 1 /hpf (0-5) 01/11/19 20:37 Urine RBC (Auto) 2 /hpf (0-3) 01/11/19 20:37 Ur Squamous Epith Cells 2 /hpf (0-5) 01/11/19 20:37 Urine Bacteria Rare (<OCC) 01/11/19 20:37 Urine HCG, Qual Negative (NEGATIVE) 01/11/19 20:37 Urine HCG, Qual Negative (NEGATIVE) 01/11/19 20:37 O2 Sat by Pulse Oximetry: 98 (on RA) Pulse Ox Interpretation: Normal Medical Decision Making Medical Decision Making: Bloodwork and urinalysis ordered. Patient has been medically cleared after PO potassium administration. Disposition - Disposition Disposition: HOSPITALIZED Disposition Time: 21:10 Condition: STABLE - Clinical Impression Clinical Impression: Schizophrenia - Scribe Statement The provider has reviewed the documentation as recorded by the Scribe (Sahara Pagan) Provider Attestation: All medical record entries made by the Scribe were at my direction and personally dictated by me. I have reviewed the chart and agree that the record accurately reflects my personal performance of the history, physical exam, medical decision making, and the department course for this patient. I have also personally directed, reviewed, and agree with the discharge instructions and disposition.
[2019-01-12] MEDS: Levothyroxine 125 MCG TAB PO SCH (06:08)
--- NOTE | 2019-01-12 09:31 | PCM.PSYCH ---
Initial Psychiatric Evaluation - Initial Psychiatric Evaluation Type of Admission: Voluntary Legal Status: Capacity Chief Complaint (in patient's own words): "Leave me alone!" History of Present Illness and Precipitating Events: The pt is seen, chart reviewed, case discussed This is a 43 y/o woman with 3 children. She lives at home with her and her 19 y/o daughter. Pt was admitted from he ED after she told t radha that she was feeling paranoid. She is a poor historian, and is agitated easily, refusing to even walk, leave her stretcher (later she was convinced to move to her bed). States that she came in because "the police were called by her daughter". She says prior to coming she had an argument with her daughter over a cell phone. Pt states " I don't feel well" and " I am brain injured. " She also states that she "does not know why she in the psych unit." According to her she has been hospitalized in psych before " because of her family." A message left with her family. She denies feeling suicidal, homicidal but appears internally preoccupied, very disorganized, thought disordered and paranoid. She also said bizarre things like "they put me in psych pradhan because they believe in zoroastrian" And her insight is very low, as believes she was in the hospital b/c she had a cold. Claims to be compliant with meds her gives, but doesn't know the names. Denies drug and alcohol use. UDS was negative Past psych hx: She had been admitted more than once in the past, i.e. [place] inpatient in 2017 and [facility] [place] involuntarily. She was on Geodon, Abilify, Haldol among others in the past Hospitalization - [place] [facility] 02/2017- for acute psychosis and suicidal ideation. Fam Psych Hx: Unknown Medical hx: Hypothyroidism. On levoxyl. Current Medications: Active Medications Generic Name Dose Route Start Last Admin Trade Name Freq PRN Reason Stop Dose Admin Al Hydrox/Mg Hydrox/Simethicone 30 ml 01/12/19 02:03 Maalox 30 Ml PO Q8 PRN Indigestion / Heartburn Hydroxyzine HCl 50 mg 01/12/19 00:18 Atarax PO QID PRN Agitation Levothyroxine Sodium 125 mcg 01/12/19 06:30 01/12/19 06:08 Synthroid PO Not Given DAILY@0630 [facility] Pneumococcal Polyvalent Vaccine 0.5 ml 01/14/19 10:00 Pneumovax 23 Vaccine IM 01/14/19 10:01 .ONCE ONE Trazodone HCl 100 mg 01/12/19 00:18 Desyrel PO HS PRN Insomnia Past Psychiatric History - Past Psychiatric History Previous Treatment History: Inpatient Pertinent Medical Hx (Current Medical&Sleep Prob, Allergies): Allergies Allergy/AdvReac Type Severity Reaction Status Date / Time cefazolin sodium [From Anc] Allergy RASH Verified 01/11/19 19:42 Penicillins Allergy RASH Verified 01/11/19 19:42 Levothyroxine [Synthroid] 125 mcg PO ACB #7 tab 03/07/17 Haldol 01/11/19 traZODone 01/11/19 Review of Systems - Review of Systems Systems not reviewed;Unavailable: Uncooperative Mental Status Examination - Personal Presentation Personal Presentation: Looks older than stated age (disorganized, disheveled) - Affect Affect: Blunted - Motor Activity Motor Activity: Psychomotor Agitation - Reliability in Providing Information Reliability in Providing Information: Poor, due to alteration in thoughts - Speech Speech: Disorganized - Mood Mood: Other (irate) - Formal Thought Process Formal Thought Process: Hallucinations (likely), Delusions, Paranoia, Loosening of associations - Cognitive Functions Orientation: Person, Place, Time Sensorium: Drowsy Attention/Concentration: Easily distracted Abstract Thinking: [place] Estimate of Intelligence: Below average Judgement: Imparied, as evidence by: Poor judgement Memory: Recent impaired, as evidence by: Inability to recall events of the day, Remote impaired as evidenced by: Inability to recall sig life events - Risk Risk: Diminished functioning - Strength & Assets Inventory Strength & Assets Inventory: Family support - Limitations Limitations: Other DSM 5 DX - DSM 5 DSM 5 Diagnosis: Chronic schizophrenia, acute exacerbation - Recommended/Plan of Treatment Treatment Recommendations and Plan of Treatment: Haldol and cogentin for psychosis and possible EPS, respectively Support and psychoed prn meds Contact family Assign ICMS [place] meds Risks of meds discussed - she did not care much 1:1 for now Consider [facility] [place] if she refuses meds or not improving 36 min Projected ELOS: 7-10 days
--- NOTE | 2019-01-12 13:44 | RAD ---
Date of service: 01/12/2019 HISTORY: Medical clearance. Too psychotic. Pre-commitment COMPARISON: 12/12/2018. single-view chest. 07/17/2018. CT thorax FINDINGS: LUNGS: No active pulmonary disease. PLEURA: No significant pleural effusion identified, no pneumothorax apparent. CARDIOVASCULAR: No atherosclerotic calcification present No radiographic findings to suggest acute or significant cardiovascular disease. OSSEOUS STRUCTURES: No significant abnormalities. VISUALIZED UPPER ABDOMEN: Normal. OTHER FINDINGS: Incompletely visualized common known large hiatal hernia. IMPRESSION: No active disease. No significant interval change compared to the prior examination(s).
[2019-01-12] MEDS: Albuterol HFA 90 mcg/actuation (8 g) INH PRN (21:51)
[2019-01-13] MEDS: Levothyroxine 125 MCG TAB PO SCH (05:49)
[2019-01-13] MEDS: Albuterol HFA 90 mcg/actuation (8 g) INH PRN ×2 (08:25→15:21)
[2019-01-13 09:17] LABS: ALB/GLOB RATIO 1.3 (1.0-2.1); ALBUMIN 3.8 g/dL (3.5-5.0); ALT/SGPT < 6 U/L (9-52); AST/SGOT 24 U/L (14-36); BLOOD UREA NITROGEN 15 mg/dL (7-17); CALCIUM 8.9 mg/dl (8.6-10.4); GFR NON-AFRICAN AMERICAN > 60
--- NOTE | 2019-01-13 13:24 | PCM.PYCHPN ---
Psychiatric Progress Note - Psychiatric Progress Note Patient seen today, length of contact: 20 min Patient Chief Complaint: "I have pain" Problems Identified/Issues Discussed: The pt is seen, chart reviewed, labs too, and case discussed She is still psychotic but not suicidal or homicidal Her main issues is gross self-neglect: it seems like she hasn't showered or kept herself clean for a long time and she has sores on his bed from likely sleeping in urine or feces. She finally admitted she has a home health aid but she comes "sometimes" she said. Our SW is to call the agency Then, singer songwriter called the number in the chart twice with no one answering. Her family is not calling or following at all. She is taking meds but still easily agitated and paranoid. She says she wants to go to a skilled nursing. BUt yet she wouldn't cooperate with PT She claims she uses a wheelchair Medication Change: Yes (BERHANE torres. yesterday) Medical Record Reviewed: Yes Mental Status Examination - Cognitive Function Orientation: Person, Place, Time Memory: Impaired Attention: Poor Concentration: Poor Association: Loose Fund of Knowledge: Poor - Mood Mood: Depressed, Other (irate) - Affect Affect: Blunted - Speech Speech: Slurred - Formal Thought Process Formal Thought Process: Hallucinations (likely), Delusions, Paranoia, Loosening of associations - Suicidal Ideation Suicidal Ideation: No - Homicidal Ideation Homicidal Ideation: No Goal/Treatment Plan - Goal/Treatment Plan Need for Continued Stay: Severe depression anxiety, Discharge may exacerbated symptoms, Severe functional impairment, Other Progress Toward Problem(s) and Goals/Treatment Plan: Haldol and cogentin for psychosis and possible EPS, respectively Support and psychoed prn meds Contact family Assign ICMS [place] meds Risks of meds discussed - she did not care much 1:1 for now [place] [facility] [place] refuses meds or not improving Med consult b/c of hypoxia Wound nurse consult PT consult Consider [facility]
[2019-01-13] MEDS ORDERED: Ergocalciferol 50,000 Intl Units Cap PO SCH (14:00)
[2019-01-14] MEDS: Albuterol HFA 90 mcg/actuation (8 g) INH PRN ×2 (02:13→06:47)
[2019-01-14] MEDS: Levothyroxine 125 MCG TAB PO SCH (06:57)
[2019-01-14] MEDS ORDERED: Pneumococcal 23-Valent Vaccine IM ONE (10:00)
--- NOTE | 2019-01-14 13:17 | CP.PCM.CON ---
<Alexandra Ardon P - Last Filed: 01/14/19 20:55> History of Present Illness - History of Present Illness History of Present Illness: Consult note for Dr. Goodman. Patient is a 43 y/o female with a PMhx of COPD, Asthma, DM, HTN, Hypothyroidism, Arthritis, Anxiety, Fibromyalgia, and Schizophrenia brought to the psych unit due [facility]. Medicine is consulted for patients complaint of abdominal rash, constipation, and dyspnea. Patient states the abdominal rash located in the skin fold of the lower abdominal region and it occurs intermittently over many years. She reports itchiness and foul smell in the area. Treatment with an OTC cream helps. She does not remember the name of the cream. Nothing makes it worse. Patient also complains about constipation that has been going on for many years. She states her last BM was prior to coming to the hospital. She has mild mid-epigastric pain without a radiation. Denies any diarrhea, vomiting, nausea, chest pain, palpitations, or cough. Patient denies shortness of breath and noted to be satting 98% on room air since admission. She has not used her rescue inhaler for "a while". During the interview, patient was lying on her abdomen in a comfortable position. PMHx: COPD, Asthma, DM, HTN, Hypothyroidism, Arthritis, Anxiety, Fibromyalgia, and Schizophrenia PSHx: Tonsillectomy Meds: Levothyroxine 125mcg daily, Trazodone 50mg HS, Haldol 5mg QD- Patient last filled Albuterol and Airduo inhalers in 07/2018. Allergies: PCN, cefazolin-rash Social Hx: Smoke 1ppd for many years, denies alcohol and illicit drugs. Lives with . Family Hx: "I don't want to talk about it" Review of Systems: -Gen: No fever, No chills, No headache, No lethargy, No weakness. -HEENT: No dizziness, No change in vision, No change in hearing, No sore throat, No dysphagia, No nasal congestion, No mucous. -Cardio: No chest pain, No palpitations, No lower extremity edema, No orthopnea. -Resp: No cough, No dyspnea, No hemoptysis, No wheezing, No pain on inspiration. -GI: No abdominal pain, No nausea/vomiting, No diarrhea, +constipation, No hematochezia, No hematemesis. -: No dysuria, No urinary freq, No incontinence, No hematuria, No change in urinary stream. -MSK: No back pain, No muscle weakness, No radiating pain. -Skin: + itching,+ rash -Neuro: No confusion, No numbness, No tingling, No focal weakness, No radicular pain, No syncope. Past Patient History - Infectious Disease Hx of Infectious Diseases: None - Past Medical History & Family History Past Medical History?: Yes - Past Social History Smoking Status: Heavy Smoker > 10 Cigarettes Daily - CARDIAC Hx Hypertension: No - PULMONARY Hx Chronic Obstructive Pulmonary Disease (COPD): Yes - NEUROLOGICAL Hx Seizures: No - HEENT Hx HEENT Problems: Yes - RENAL Hx Chronic Kidney Disease: No - ENDOCRINE/METABOLIC Hx Hyperthyroidism: (DENIES THIS ADMISSION) Hx Hypothyroidism: Yes (Reports having Ami) - HEMATOLOGICAL/ONCOLOGICAL Hx Human Immunodeficiency Virus (HIV): No - INTEGUMENTARY Hx Dermatological Problems: No - MUSCULOSKELETAL/RHEUMATOLOGICAL Hx Arthritis: Yes - GASTROINTESTINAL Hx Gastrointestinal Disorders: Yes Hx Gastroesophageal Reflux: Yes - GENITOURINARY/GYNECOLOGICAL Hx Sexually Transmitted Disorders: No - PSYCHIATRIC Hx Substance Use: No - SURGICAL HISTORY Hx Tonsillectomy: Yes - ANESTHESIA Hx Anesthesia: Yes Hx Anesthesia Reactions: No Hx Malignant Hyperthermia: No Meds Allergies/Adverse Reactions: Allergies Allergy/AdvReac Type Severity Reaction Status Date / Time cefazolin sodium [From [facility]] Allergy RASH Verified 01/11/19 19:42 Penicillins Allergy RASH Verified 01/11/19 19:42 - Medications Medications: Current Medications Al Hydrox/Mg Hydrox/Simethicone (Maalox 30 Ml) 30 ml PO Q8 PRN PRN Reason: Indigestion / Heartburn Albuterol (Ventolin Hfa 90 Mcg/Actuation (8 G)) 1 puff INH RQ4 PRN PRN Reason: Shortness of Breath Last Admin: 01/14/19 06:47 Dose: 1 puff Benztropine Mesylate (Cogentin) 1 mg PO BID [facility] Last Admin: 01/14/19 09:41 Dose: 1 mg Ergocalciferol (Drisdol 50,000 Intl Units Cap) 1 cap PO Q7D [facility] Last Admin: 01/13/19 13:53 Dose: 1 cap Haloperidol (Haldol) 5 mg PO TID [facility] Last Admin: 01/14/19 09:41 Dose: 5 mg Haloperidol Lactate (Haldol) 5 mg IM Q4H PRN PRN Reason: aggression Hydroxyzine HCl (Atarax) 50 mg PO Q6H PRN PRN Reason: Anxiety Last Admin: 01/13/19 18:46 Dose: 50 mg Ibuprofen (Motrin Tab) 600 mg PO Q6 PRN PRN Reason: Pain, moderate (4-7) Last Admin: 01/13/19 15:21 Dose: 600 mg Levothyroxine Sodium (Synthroid) 125 mcg PO DAILY@0630 [facility] Last Admin: 01/14/19 06:57 Dose: 125 mcg Lorazepam (Ativan) 1 mg IM Q6H PRN PRN Reason: severe agitation Lorazepam (Ativan) 1 mg PO Q4H PRN PRN Reason: Agitation Last Admin: 01/13/19 15:39 Dose: 1 mg Nystatin (Nystop Topical Powder) 1 applic TOP TID [facility] Ondansetron HCl (Zofran Inj) 4 mg IM Q6 PRN PRN Reason: Nausea/Vomiting Last Admin: 01/13/19 22:09 Dose: 4 mg Trazodone HCl (Desyrel) 100 mg PO HS PRN PRN Reason: Insomnia Ziprasidone (Geodon Inj) 20 mg IM Q12H PRN PRN Reason: severe aggression Physical Exam - Constitutional Appears: Non-toxic, No Acute Distress, Unkempt, Other (malodorous of feces) - Head Exam Head Exam: ATRAUMATIC, NORMOCEPHALIC - Eye Exam Eye Exam: EOMI, Normal appearance, PERRL - ENT Exam ENT Exam: Mucous Membranes Moist, Normal Exam - Neck Exam Neck exam: Positive for: Full Rom, Normal Inspection - Respiratory Exam Respiratory Exam: Clear to Auscultation Bilateral. absent: Rales, Rhonchi, Wheezes - Cardiovascular Exam Cardiovascular Exam: REGULAR RHYTHM, +S1, +S2 - GI/Abdominal Exam GI & Abdominal Exam: Normal Bowel Sounds, Soft. absent: Distended, Firm, Guarding, Rebound, Rigid, Tenderness Additional comments: Obese - Extremities Exam Extremities exam: Positive for: normal inspection, pedal pulses present. Negative for: calf tenderness, joint swelling, tenderness - Neurological Exam Neurological exam: Alert, CN II-XII Intact (grossly) - Psychiatric Exam Psychiatric exam: Flat Affect - Skin Additional comments: erythema to abdominal folds Results - Vital Signs Recent Vital Signs: Last Vital Signs Temp 98.1 F 01/14/19 07:01 Pulse 79 01/14/19 07:01 Resp 18 01/14/19 07:01 BP 124/74 01/14/19 07:01 Pulse Ox 98 01/12/19 05:47 - Labs Result Diagrams: 01/11/19 19:58 01/13/19 08:47 Assessment & Plan - Assessment and Plan (Free Text) Plan: Intertigo over pannus -Nystatin Powder TID -Keep area clean and dry Constipation -Colace 100mg BID COPD/Asthma -CXR: NAD. See full report. -Duoneb Q6H PRN SOB -Breo Ellipta 1 puff QD -Encourage compliance with home meds of albuterol and Airduo Nicotine use disorder -Nicotine patch -Encourage smoking cessation Obesity -Encourage lifestyle modification Elevated TSH -TSH: 21 -Continue Levothyroxine 125mcg QD Vitamin D deficiency -Continue Ergocalciferol 50,000u Q7D Schizophrenia -Managemetn as per psych Please reconsult as necessary. Case discussed with Dr. Rex Ardon, PGY-1. <Jody Goodman V - Last Filed: 01/14/19 21:33> Meds - Medications Medications: Current Medications Al Hydrox/Mg Hydrox/Simethicone (Maalox 30 Ml) 30 ml PO Q8 PRN PRN Reason: Indigestion / Heartburn Last Admin: 01/14/19 14:23 Dose: 30 ml Albuterol (Ventolin Hfa 90 Mcg/Actuation (8 G)) 1 puff INH RQ4 PRN PRN Reason: Shortness of Breath Last Admin: 01/14/19 06:47 Dose: 1 puff Albuterol/Ipratropium (Duoneb 3 Mg/0.5 Mg (3 Ml) Ud) 3 ml INH RQ6 PRN PRN Reason: Shortness of Breath Benztropine Mesylate (Cogentin) 1 mg PO BID LIZZIE Last Admin: 01/14/19 17:08 Dose: 1 mg Docusate Sodium (Colace) 100 mg PO BID [facility] Ergocalciferol (Drisdol 50,000 Intl Units Cap) 1 cap PO Q7D [facility] Last Admin: 01/13/19 13:53 Dose: 1 cap Fluticasone/Vilanterol (Breo Ellipta 100-25 Mcg Inh) 1 puff INH RQD [facility] Haloperidol (Haldol) 5 mg PO TID [facility] Last Admin: 01/14/19 17:08 Dose: 5 mg Haloperidol Lactate (Haldol) 5 mg IM Q4H PRN PRN Reason: aggression Hydroxyzine HCl (Atarax) 50 mg PO Q6H PRN PRN Reason: Anxiety Last Admin: 01/13/19 18:46 Dose: 50 mg Ibuprofen (Motrin Tab) 600 mg PO Q6 PRN PRN Reason: Pain, moderate (4-7) Last Admin: 01/14/19 14:52 Dose: 600 mg Levothyroxine Sodium (Synthroid) 125 mcg PO DAILY@0630 [facility] Last Admin: 01/14/19 06:57 Dose: 125 mcg Lorazepam (Ativan) 1 mg IM Q6H PRN PRN Reason: severe agitation Lorazepam (Ativan) 1 mg PO Q4H PRN PRN Reason: Agitation Last Admin: 01/13/19 15:39 Dose: 1 mg Nicotine (Nicoderm Cq) 1 patch TD DAILY [facility] Last Admin: 01/14/19 15:46 Dose: 1 patch Nystatin (Nystop Topical Powder) 1 applic TOP TID [facility] Last Admin: 01/14/19 17:09 Dose: Not Given Ondansetron HCl (Zofran Inj) 4 mg IM Q6 PRN PRN Reason: Nausea/Vomiting Last Admin: 01/13/19 22:09 Dose: 4 mg Trazodone HCl (Desyrel) 100 mg PO HS PRN PRN Reason: Insomnia Ziprasidone (Geodon Inj) 20 mg IM Q12H PRN PRN Reason: severe aggression Results - Vital Signs Recent Vital Signs: Last Vital Signs Temp 98.1 F 01/14/19 07:01 Pulse 69 01/14/19 15:33 Resp 18 01/14/19 07:01 BP 112/73 01/14/19 15:33 Pulse Ox 98 01/12/19 05:47 - Labs Result Diagrams: 01/11/19 19:58 01/13/19 08:47 Attending/Attestation - Attestation I have personally seen and examined this patient.: Yes I have fully participated in the care of the patient.: Yes I have reviewed all pertinent clinical information: Yes Notes (Text): Medicine consult for abdominal rash, question of hypoxia, and constipation. I spoke with patient's nurse this morning stepping since consult is not initially called in yesterday. Patient seen at bedside this morning on [address]. patient hemodynamically stable noted that she is requesting for a medical bed because it that is uncomfortable and psych per her wording. I did evaluate the patient at bedside patient does not appear in acute distress. Patient is not in any pain. Patient in terms of physical exam noted for in the intertriginous folds of the the lower abdomen underneath the pannus is erythematous and foul- smelling likely secondary to a fungal rash. Patient noted for poor hygiene and stools smiling in the room. Patient was evaluated by wound care per discussion with the nurse. I do agree that nystatin topical powder would be appropriate in the folds given that this will likely be fungal infection I did check the armpits as well there is no rash there is no sacral ulcer on exam. I did see the chest x-ray that was completed on 4 8 as well as no noted hypoxia during review of vital signs during the patient's course on [address] him for DuoNeb as needed for shortness of breath the resident has spoken with the pharmacy was noted the patient has not picked up her medications since 2018 was recommended for a Ventolin and a lab for her COPD as well as her levothyroxine with a known history of hypothyroidism. Patient is remains hemodynamically stable to remain on 5 E. for further treatment for her schizophrenia and psychotic features noted. Also to note in spite of the fact that patient reports that she is constipated bowel is soft obese habitus as well as nurse notes that when she was first arrived in 5 E. that she was found with stool covered in stool "". I did place in for Colace as a stool softener for her. Medicine team to sign off please reconsult if needed thank you. Assessment/plan 1. Fungal rash continue nystatin topical powder 2 . Constipation resolved placed on Colace as needed for stool softener belly is benign and soft 3. History of COPD patient is not in any acute exacerbation there is no noted hypoxia noted in the vital signs. Placed on DuoNeb as needed for shortness of breath and Brio daily. 4. Patient does have morbid obesity would recommend for diet and exercise for both obesity when she is more stable in terms of her psychiatric condition 5. Tobacco cessation patient notes that she does smoke cigars. Would recommend for nicotine patch daily. 6. Hypothyroidism to continue levothyroxine patient should follow-up with PMD in terms of follow-up for TSH and free T4. Given the conversation with the resident has had with pharmacy given the patient is not compliant on her medications. 7. Vitamin D deficiency patient noted to be started on vitamin D 50,000 units once a week would recommend for 12-week course of follow-up with PMD in terms of vitamin D level. 8. Schizophrenia further management per psychiatry
[2019-01-14] MEDS ORDERED: Albuterol-Ipratrop 3 mg / 0.5 (3 ml) UD INH PRN (15:09)
--- NOTE | 2019-01-14 22:55 | PCM.PYCHPN ---
Psychiatric Progress Note - Psychiatric Progress Note Patient seen today, length of contact: 19 min Patient Chief Complaint: "I have pain" Problems Identified/Issues Discussed: The pt is seen, chart reviewed, labs too, and case discussed She is still psychotic but not suicidal or homicidal Her main issues is gross self-neglect: it seems like she hasn't showered or kept herself clean for a long time and she has sores on his bed from likely sleeping in urine or feces. She finally admitted she has a home health aid but she comes "sometimes" she said. Our SW is to call the agency Then, health underwriter called the number in the chart twice with no one answering. Her family is not calling or following at all. She is taking meds but still easily agitated and paranoid. She says she wants to go to a shelter. BUt yet she wouldn't cooperate with PT She claims she uses a wheelchair Medication Change: Yes (BERHANE torres. yesterday) Medical Record Reviewed: Yes Mental Status Examination - Cognitive Function Orientation: Person, Place, Time Memory: Impaired Attention: Poor Concentration: Poor Association: Loose Fund of Knowledge: Poor - Mood Mood: Depressed, Other (irate) - Affect Affect: Blunted - Speech Speech: Slurred - Formal Thought Process Formal Thought Process: Hallucinations (likely), Delusions, Paranoia, Loosening of associations - Suicidal Ideation Suicidal Ideation: No - Homicidal Ideation Homicidal Ideation: No Goal/Treatment Plan - Goal/Treatment Plan Need for Continued Stay: Severe depression anxiety, Discharge may exacerbated symptoms, Severe functional impairment, Other Progress Toward Problem(s) and Goals/Treatment Plan: Haldol and cogentin for psychosis and possible EPS, respectively Support and psychoed prn meds Contact family Assign ICMS [place] meds Risks of meds discussed - she did not care much 1:1 for now Consider [facility] screening if she refuses meds or not improving Med consult b/c of hypoxia Wound nurse consult PT consult Consider P[facility]
[2019-01-15] MEDS: Albuterol HFA 90 mcg/actuation (8 g) INH PRN (06:17)
[2019-01-15 06:40] VITALS: RESP 20; TEMP 97.5
[2019-01-15] MEDS: Levothyroxine 125 MCG TAB PO SCH (06:54)
[2019-01-15] MEDS ORDERED: Fluticasone-Vilanterol 100/25mcg Diskus INH SCH (08:00)
--- NOTE | 2019-01-15 09:22 | PCM.PYCHDC ---
Mental Status Examination - Mental Status Examination Orientation: Person Discharge Summary - Discharge Note Consultations:: List each consultation separately and include: 1. Reason for request. 2. Findings. 3. Follow-up Summary of Hospital Course include:: 1. Description of specific treatment plan utilized for patients during their course of treatmen. 2. Summarize the time- course for resolution of acute symptoms and/or regressed behaviors. 3. Describe issues identified and worked on during hospitalization. 4. Describe medication utilized. 5. Describe medical problems identified and treated. 6. Reassessment of suicide risk Summary of Hospital Course: The pt is seen, chart reviewed, case discussed This is a 43 y/o woman with 3 children. She lives at home with her and her 19 y/o daughter. Pt was admitted from he ED after she told them that she was feeling paranoid. She is a poor historian, and is agitated easily, refusing to even walk, leave her stretcher (later she was convinced to move to her bed). States that she came in because "the police were called by her daughter". She says prior to coming she had an argument with her daughter over a cell phone. Pt states " I don't feel well" and " I am brain injured. " She also states that she "does not know why she in the psych unit." According to her she has been hospitalized in psych before " because of her family." A message left with her family. She denies feeling suicidal, homicidal but appears internally preoccupied, very disorganized, thought disordered and paranoid. She also said bizarre things like "they put me in psych pradhan because they believe in oriental orthodox" And her insight is very low, as believes she was in the hospital b/c she had a cold. Claims to be compliant with meds her gives, but doesn't know the names. Denies drug and alcohol use. UDS was negative Past psych hx: She had been admitted more than once in the past, i.e. [facility] in 2017 and [facility] in 2018 involuntarily. She was on Geodon, Abilify, Haldol among others in the past Hospitalization - [facility] 02/2017- for acute psychosis and suicidal ideation. Fam Psych Hx: Unknown Medical hx: Hypothyroidism. On levoxyl. - Diagnosis (1) Schizophrenia Current Visit: Yes Status: Acute - Final Diagnosis (DSM 5) Condition upon Discharge: STABLE Disposition: HOME/ ROUTINE Follow-up Treatment Plan: Haldol and cogentin for psychosis and possible EPS, respectively Support and psychoed prn meds Contact family Assign ICMS [place] meds Risks of meds discussed - she did not care much 1:1 for now Consider [facility] screening if she refuses meds or not improving Med consult b/c of hypoxia Wound nurse consult PT consult Consider [facility]
[2019-01-15 15:55] VITALS: BP 136/86; PULSE 85
== END 2019-01-15 18:55 | disposition home or self-care (01) | DRG 430 ==
LOC: C.ER 19:31 → C.5E 22:57
PROVIDERS: ADMIT Psychiatry & Neurology Psychiatry; ATTEND Psychiatry & Neurology Psychiatry
PROC: GZ3ZZZZ Medication Management (ICD-10-PCS; principal; 2019-01-11)
PROC: GZHZZZZ Group Psychotherapy (ICD-10-PCS; 2019-01-11)
PROC: GZ56ZZZ Individual Psychotherapy, Supportive (ICD-10-PCS; 2019-01-11)
DX: F20.9 Schizophrenia, unspecified (principal); F43.10 Post-traumatic stress disorder, unspecified; F41.9 Anxiety disorder, unspecified; F17.210 Nicotine dependence, cigarettes, uncomplicated; J44.9 Chronic obstructive pulmonary disease, unspecified; I10 Essential (primary) hypertension; E11.9 Type 2 diabetes mellitus without complications; E03.9 Hypothyroidism, unspecified; E55.9 Vitamin D deficiency, unspecified; K59.00 Constipation, unspecified; K21.9 Gastro-esophageal reflux disease without esophagitis; M79.7 Fibromyalgia; B36.9 Superficial mycosis, unspecified; E66.01 Morbid (severe) obesity due to excess calories